=== PATIENT | female | born 1990 | race African-American/Black ===

== ENCOUNTER 2017-03-13 17:55 | Emergency (ER) | payer SELFPAY ==
[2017-03-13 17:59] VITALS: BP 131/78
--- NOTE | 2017-03-13 18:49 | ER Document Report ---
ED GI/ - General Chief Complaint: Urinary Problem Stated Complaint: ABDOMINAL/BACK PAIN,PAINFUL URINATION Time Seen by Provider: 03/13/17 18:30 Notes: 26 yo female c/o dysuria, frequency, small voids x 2 days. denies fever, abdominal pain, vaginal discharge, back pain TRAVEL OUTSIDE OF THE [place] IN LAST 30 DAYS: No - HPI Patient complains to provider of: Dysuria Timing/Duration: Gradual Location: Suprapubic Vaginal bleeding (Compared to normal period): None - Related Data Allergies/Adverse Reactions: Sulfa (Sulfonamide Antibiotics) Allergy (Intermediate, Verified 03/13/17 17:59) RASH Past Medical History - General Information source: Patient - Social History Smoking Status: Never Smoker Frequency of alcohol use: None Drug Abuse: None Lives with: Family Family History: Reviewed & Not Pertinent, CAD, DM - mom is diabetic, Hypertension, Malignancy - breast, Other - lupus - Past Medical History Cardiac Medical History: Reports: Hx Hypertension Pulmonary Medical History: Reports: Hx Asthma Endocrine Medical History: Reports: Hx Diabetes Mellitus Type 1 Renal/ Medical History: Denies: Hx Peritoneal Dialysis Past Surgical History: Reports: Hx Gynecologic Surgery - - Immunizations Hx Diphtheria, Pertussis, Tetanus Vaccination: Yes - 06/20/2009 Hx Pneumococcal Vaccination: 06/20/09 Review of Systems - Review of Systems Constitutional: No symptoms reported EENT: No symptoms reported Cardiovascular: No symptoms reported Respiratory: No symptoms reported Gastrointestinal: No symptoms reported Genitourinary: See HPI Female Genitourinary: No symptoms reported Musculoskeletal: No symptoms reported Skin: No symptoms reported Hematologic/Lymphatic: No symptoms reported Neurological/Psychological: No symptoms reported Physical Exam - Vital signs Vitals: Temp Pulse Resp BP Pulse Ox 98.6 F 77 16 131/78 H 99 03/13/17 17:58 03/13/17 17:58 03/13/17 17:58 03/13/17 17:58 03/13/17 17:58 Interpretation: Normal - General General appearance: Appears well, Alert - HEENT Head: Normocephalic, Atraumatic Eyes: Normal Pupils: PERRL - Respiratory Respiratory status: No respiratory distress Chest status: Nontender Breath sounds: Normal Chest palpation: Normal - Cardiovascular Rhythm: Regular Heart sounds: Normal auscultation Murmur: No - Abdominal Inspection: Normal Distension: No distension Bowel sounds: Normal Tenderness: Nontender Organomegaly: No organomegaly - Back Back: Normal, Nontender - Extremities General upper extremity: Normal inspection, Nontender, Normal color, Normal ROM , Normal temperature General lower extremity: Normal inspection, Nontender, Normal color, Normal ROM , Normal temperature, Normal weight bearing. No: Michael's sign - Neurological Neuro grossly intact: Yes Cognition: Normal Orientation: AAOx4 [place] Coma Scale Eye Opening: Spontaneous [place] Coma Scale Verbal: Oriented [place] Coma Scale Motor: Obeys Commands [place] Coma Scale Total: 15 Speech: Normal Motor strength normal: LUE, RUE, LLE, RLE Sensory: Normal - Psychological Associated symptoms: Normal affect, Normal mood - Skin Skin Temperature: Warm Skin Moisture: Dry Skin Color: Normal Course - Re-evaluation Re-evalutation: 03/13/17 18:45 H&P c/w uncomplicated cystitis. pt is afebrile, nontoxic and stable for discharge - Vital Signs Vital signs: Temp Pulse Resp BP Pulse Ox 98.6 F 77 16 131/78 H 99 03/13/17 17:58 03/13/17 17:58 03/13/17 17:58 03/13/17 17:58 03/13/17 17:58 Discharge - Discharge Clinical Impression: Dysuria Condition: Stable Disposition: HOME, SELF-CARE Instructions: Urinary Tract Infection ([facility]), Antibiotic Therapy ([facility]), Urinary Anesthetic Agent ([facility]) Additional Instructions: please take all medication as prescribed urine culture is pending, we will call you if any change in treatment is indicated push fluids follow up with your primary care if symptoms persist return to ER fo any worsening Prescriptions: Fluconazole [Diflucan] 150 mg PO ONCE PRN #1 tablet PRN Reason: Nitrofurantoin Macrocrystal [Macrodantin] 100 mg PO QID #28 capsule Phenazopyridine HCl [Pyridium 200 mg Tablet] 200 mg PO TID #12 tablet
== END 2017-03-13 18:54 | disposition home or self-care (01) ==
LOC: ER 17:55
DX: R30.0 Dysuria (principal); R35.0 Frequency of micturition; I10 Essential (primary) hypertension; E10.9 Type 1 diabetes mellitus without complications; Z88.2 Allergy status to sulfonamides
CPT/HCPCS: 87086; 87088; 87186; 99283

== ENCOUNTER 2017-05-10 11:37 | Emergency (ER) | payer SELFPAY ==
--- NOTE | 2017-05-10 11:57 | ER Document Report ---
ED Medical Screen (RME) - General Chief Complaint: Pelvic Pain Stated Complaint: PELVIC PAIN Time Seen by Provider: 05/10/17 11:56 Notes: Patient states that she is approximate 11 weeks . States she has been having some pain in the lower part of her abdomen that goes into her inner thighs. She denies any vaginal discharge or bleeding. She states she has not had an ultrasound yet with this . TRAVEL OUTSIDE OF THE [place] IN LAST 30 DAYS: No - Related Data Allergies/Adverse Reactions: Sulfa (Sulfonamide Antibiotics) Allergy (Intermediate, Verified 05/10/17 11:39) RASH Home Medications: Current Home Medications No122/Iron/Folic Acid [ Multi Tablet] 1 tab PO DAILY 05/10/17 [ History] Past Medical History - Social History Chew tobacco use (# tins/day): No Frequency of alcohol use: Rare Drug Abuse: None - Past Medical History Cardiac Medical History: Reports: Hx Hypertension Pulmonary Medical History: Reports: Hx Asthma Endocrine Medical History: Reports: Hx Diabetes Mellitus Type 1 Renal/ Medical History: Denies: Hx Peritoneal Dialysis Past Surgical History: Reports: Hx Gynecologic Surgery - - Immunizations Hx Diphtheria, Pertussis, Tetanus Vaccination: Yes - 06/20/2009 Physical Exam - Vital signs Vitals: Temp Pulse Resp BP Pulse Ox 98.9 F 88 15 113/61 99 05/10/17 11:39 05/10/17 11:39 05/10/17 11:39 05/10/17 11:39 05/10/17 11:39 Course - Vital Signs Vital signs: Temp Pulse Resp BP Pulse Ox 98.9 F 88 15 113/61 99 05/10/17 11:39 05/10/17 11:39 05/10/17 11:39 05/10/17 11:39 05/10/17 11:39
[2017-05-10 12:24] LABS: APPEARANCE,URINE SLIGHTLY-CLOUDY; BILIRUBIN,URINE NEGATIVE (NEGATIVE); GLUCOSE, URINE NEGATIVE (NEGATIVE); KETONES,URINE NEGATIVE (NEGATIVE); LEUKOCYTE ESTERASE,URINE NEGATIVE (NEGATIVE); NITRITE,URINE NEGATIVE (NEGATIVE); PROTEIN,URINE NEGATIVE (NEGATIVE); URINE SPECIFIC GRAVITY 1.028; UROBILINOGEN,URINE NEGATIVE mg/dL (<2.0)
[2017-05-10 12:26] LABS: ABSOLUTE EOSINOPHILS # (AUTO) 0.1 10^3/uL (0.0-0.6); ABSOLUTE LYMPHOCYTES (AUTO) 1.3 10^3/uL (0.5-4.7); ABSOLUTE MONOCYTES (AUTO) 0.5 10^3/uL (0.1-1.4); ABSOLUTE NEUT (AUTO) 3.6 10^3/uL (1.7-8.2); BASOPHILS % (AUTO) 0.9 % (0-2); EOSINOPHILS % (AUTO) 2.1 % (0-6); HEMATOCRIT 35.5 % (36.0-47.0); HEMOGLOBIN 11.8 g/dL (12.0-15.5); HGB HCT DIFFERENCE -0.1; LYMPHOCYTES % (AUTO) 23.5 % (13-45); MEAN CORPUSCULAR HEMOGLOBIN 27.7 pg (27.0-33.4); MEAN CORPUSCULAR HGB CONC 33.4 g/dL (32.0-36.0); MEAN CORPUSCULAR VOLUME 83 fl (80-97); MONOCYTES % (AUTO) 8.9 % (3-13); RED BLOOD COUNT 4.27 10^6/uL (3.72-5.28); RED CELL DISTRIBUTION WIDTH 14.8 % (11.5-14.0); SEGMENTED NEUTROPHILS % (AUTO) 64.6 % (42-78); WHITE BLOOD COUNT 5.6 10^3/uL (4.0-10.5)
[2017-05-10 12:47] LABS: ALANINE AMINOTRANSFERASE 38 U/L (9-52); ALKALINE PHOSPHATASE 42 U/L (38-126); ANION GAP 12 (5-19); ASPARTATE AMINO TRANSFERASE 25 U/L (14-36); BILIRUBIN,DIRECT 0.3 mg/dL (0.0-0.4); BILIRUBIN,TOTAL 0.3 mg/dL (0.2-1.3); BLOOD UREA NITROGEN 11 mg/dL (7-20); CALCIUM 9.5 mg/dL (8.4-10.2); CARBON DIOXIDE 24 mmol/L (22-30); CHLORIDE 105 mmol/L (98-107); CREATININE RESULT 0.81 mg/dL (0.52-1.25); GLUCOSE 83 mg/dL (75-110); SODIUM 141.3 mmol/L (137-145); TOTAL PROTEIN 7.1 g/dL (6.3-8.2)
[2017-05-10] MEDS ORDERED: ACETAMINOPHEN 325 MG TABLET PO ONE (13:01)
--- NOTE | 2017-05-10 13:01 | ER Document Report ---
ED GI/ - General Chief Complaint: Pelvic Pain Stated Complaint: PELVIC PAIN Time Seen by Provider: 05/10/17 11:56 Mode of Arrival: Ambulatory Information source: Patient Notes: Patient is a 27 year old female, approximately 11 weeks presents to the ER today for bilateral lower pelvic pain over the past week. Patient states that she did not know she was until 1 week ago. She has had no care. She admits that she has started vitamins though. She denies any difficulty urinating, burning with urination, abnormal vaginal discharge, vomiting or diarrhea. TRAVEL OUTSIDE OF THE [place] IN LAST 30 DAYS: No - Related Data Allergies/Adverse Reactions: Sulfa (Sulfonamide Antibiotics) Allergy (Intermediate, Verified 05/10/17 11:39) RASH Home Medications: Current Home Medications No122/Iron/Folic Acid [ Multi Tablet] 1 tab PO DAILY 05/10/17 [ History] Past Medical History - General Information source: Patient - Social History Smoking Status: Never Smoker Chew tobacco use (# tins/day): No Frequency of alcohol use: Rare Drug Abuse: None Family History: Reviewed & Not Pertinent, CAD, DM - mom is diabetic, Hypertension, Malignancy - breast, Other - lupus Patient has suicidal ideation: No Patient has homicidal ideation: No - Past Medical History Cardiac Medical History: Reports: Hx Hypertension Pulmonary Medical History: Reports: Hx Asthma Endocrine Medical History: Reports: Hx Diabetes Mellitus Type 1 Renal/ Medical History: Denies: Hx Peritoneal Dialysis Past Surgical History: Reports: Hx Gynecologic Surgery - - Immunizations Hx Diphtheria, Pertussis, Tetanus Vaccination: Yes - 06/20/2009 Hx Pneumococcal Vaccination: 06/20/09 Review of Systems - Review of Systems Constitutional: No symptoms reported EENT: No symptoms reported Cardiovascular: No symptoms reported Respiratory: No symptoms reported Gastrointestinal: No symptoms reported Genitourinary: No symptoms reported Female Genitourinary: See HPI Musculoskeletal: No symptoms reported Skin: No symptoms reported Hematologic/Lymphatic: No symptoms reported Neurological/Psychological: No symptoms reported Physical Exam - Vital signs Vitals: Temp Pulse Resp BP Pulse Ox 98.9 F 88 15 113/61 99 05/10/17 11:39 05/10/17 11:39 05/10/17 11:39 05/10/17 11:39 05/10/17 11:39 - Notes Notes: PHYSICAL EXAMINATION: GENERAL: Well-appearing and in no acute distress. HEAD: Atraumatic, normocephalic. EYES: Pupils equal round and reactive to light, extraocular movements intact, sclera anicteric, conjunctiva are normal. NECK: Normal range of motion, supple without lymphadenopathy LUNGS: CTAB and equal. No wheezes rales or rhonchi. HEART: Regular rate and rhythm without murmurs ABDOMEN: Soft, no tenderness. No guarding, no rebound BACK: no vertebral tenderness, normal ROM GI/: no CVA tenderness EXTREMITIES: Normal range of motion, no pitting edema. No cyanosis. NEUROLOGICAL: Cranial nerves grossly intact. Normal sensory/motor exams. PSYCH: Normal mood, normal affect. SKIN: Warm, Dry, normal turgor, no rashes or lesions noted Course - Re-evaluation Re-evalutation: 05/10/17 18:03 Lab work is unremarkable today, patient has a twin gestation, living intrauterine at approximately 6 weeks and 4 days Without evidence of abnormality. Patient was advised to continue vitamins and follow-up with women's health. I did advise her that she can only take Tylenol for the pain. - Vital Signs Vital signs: Temp Pulse Resp BP Pulse Ox 98.1 F 62 18 130/71 H 100 05/10/17 15:03 05/10/17 15:03 05/10/17 15:03 05/10/17 15:03 05/10/17 15:03 - Laboratory Result Diagrams: 05/10/17 12:09 05/10/17 12:09 Laboratory results interpreted by me: 05/10/17 05/10/17 05/10/17 12:09 12:09 12:09 Hgb 11.8 L Hct 35.5 L RDW 14.8 H Beta HCG, Quant 43990.00 H Urine Ascorbic Acid 40 H Discharge - Discharge Clinical Impression: LLQ pain Twin gestation in first trimester Qualifiers: Multiple gestation type: dichorionic and diamniotic Qualified Code(s): O30.041 - Twin , dichorionic/diamniotic, first trimester Condition: Stable Disposition: HOME, SELF-CARE Instructions: Pelvic Pain in ([facility]) Additional Instructions: Return immediately for any new or worsening symptoms. Follow up with primary care provider, call tomorrow to make followup appointment. Referrals: [facility] [Provider Group] - Follow up as needed
--- NOTE | 2017-05-10 14:37 | RADIOLOGY REPORT (SQ) ---
EXAM DESCRIPTION: U/S OB TRANSVAGINAL W/O DOP COMPLETED DATE/TIME: 05/10/2017 2:10 pm REASON FOR STUDY: pain COMPARISON: None. TECHNIQUE: Endovaginal static and realtime grayscale images acquired of the pelvis. Additional selec jerilyn spectral and color Doppler images recorded. All images stored on PACs. bHCG: Not available LIMITATIONS: None. FINDINGS: FETUS: Living twin intrauterine . 2 distinct gestational sacs are present with s urrounding decidual reaction, dichorionic diamniotic . Age gestational sac contains a yolk sac. Embryo not yet seen. EGA: 6 weeks 2 days, by mean sac diameter measurements KAREL: 01/01/2018 FHR: Yolk sacs are identified. Embryos are not yet seen SUBCHORIONIC BLEED: No SIZE OF BLEED: Not applicable. UTERUS: No masses. No anomalies. Uterus 10 x 6 x 6.5 cm in size CERVICAL LENGTH: 2.1 cm in length Closed. RIGHT ADNEXA: Not visualized due to adnexal bowel gas LEFT ADNEXA: Left ovary 5.2 x 3 x 3.8 cm in size with a 2 x 1.5 cm corpus luteum cyst. No adnexal free fluid. No adnexal masses. FREE FLUID: None. OTHER: No other significant finding. IMPRESSION: Early intrauterine twin , dichorionic diamniotic. Yolk sac is identified in ea ch of the gestational sacs. Embryos not yet seen EGA 6 weeks 2 days by mean sac diameter Trimester of : First - 0 to 13 weeks. TECHNICAL DOCUMENTATION: JOB ID: [id number] [employer]- All Rights Reserved
[2017-05-10 15:06] VITALS: BP 130/71
== END 2017-05-10 15:07 | disposition home or self-care (01) ==
LOC: ER 11:37
DX: O30.041 Twin pregnancy, dichorionic/diamniotic, first trimester (principal); R10.32 Left lower quadrant pain; Z3A.11 11 weeks gestation of pregnancy
CPT/HCPCS: 36415; 76817; 80053; 81001; 84702; 85025; 99284

== ENCOUNTER → 2017-05-18 | Outpatient (CLI) | payer SELFPAY ==
--- NOTE | 2017-05-18 15:05 | RADIOLOGY REPORT (SQ) ---
EXAM DESCRIPTION: U/S OB TRANSVAGINAL W/O DOP; U/S 73796 + EACH ADDIT GEST COMPLETED DATE/TIME: 05/18/2017 2:07 pm REASON FOR STUDY: ENCNTR FOR SUPERVISION OF OTHER NORMAL , FIRST TRI (Z34.81); SIZE AND DEISY ES Z34.81 ENCOUNTER FOR SUPRVSN OF NORMAL , FIRST TRIM COMPARISON: 05/10/2017. TECHNIQUE: Transvaginal static and realtime grayscale images acquired of the pelvis. Additional gail cted spectral and color Doppler images recorded. All images stored on PACs. bHCG: Not applicable. LIMITATIONS: none FINDINGS: Twin Intra-uterine gestation TYPE OF TWIN: Dichorionic Diamniotic. Two gestation sacs. Two yolk sacs. TWIN A: EGA: 6 week 3 day. KAREL: 01/08/2018. FHR: 147 bpm SUBCHORIONIC BLEED: No. SIZE OF BLEED: Not applicable. TWIN B: EGA: 6 week 4 day. KAREL: 01/07/2018. FHR: 116 bpm SUBCHORIONIC BLEED: No. SIZE OF BLEED: Not applicable. UTERUS: No masses. No anomalies. CERVICAL LENGTH: 3.2 cm. Closed. RIGHT ADNEXA: Ovary not identified. No adnexal free fluid. No adnexal masses. LEFT ADNEXA: Simple cyst measuring 3.1 cm. Hemorrhagic cyst measuring 2.3 cm. No adnexal free fluid. No adnexal masses. FREE FLUID: None. OTHER: No other significant finding. IMPRESSION: LIVING TWIN INTRAUTERINE TWIN A EGA: 6 WEEK 3 DAY. TWIN B EGA: 6 WEEK 4 DAY. Trimester of : First - 0 to 13 weeks. TECHNICAL DOCUMENTATION: JOB ID: [id number] [employer]- All Rights Reserved
--- NOTE | 2017-05-18 15:05 | RADIOLOGY REPORT (SQ) ---
EXAM DESCRIPTION: U/S OB TRANSVAGINAL W/O DOP; U/S 39816 + EACH ADDIT GEST COMPLETED DATE/TIME: 05/18/2017 2:07 pm REASON FOR STUDY: ENCNTR FOR SUPERVISION OF OTHER NORMAL , FIRST TRI (Z34.81); SIZE AND DEISY ES Z34.81 ENCOUNTER FOR SUPRVSN OF NORMAL , FIRST TRIM COMPARISON: 05/10/2017. TECHNIQUE: Transvaginal static and realtime grayscale images acquired of the pelvis. Additional gail cted spectral and color Doppler images recorded. All images stored on PACs. bHCG: Not applicable. LIMITATIONS: none FINDINGS: Twin Intra-uterine gestation TYPE OF TWIN: Dichorionic Diamniotic. Two gestation sacs. Two yolk sacs. TWIN A: EGA: 6 week 3 day. KAREL: 01/08/2018. FHR: 147 bpm SUBCHORIONIC BLEED: No. SIZE OF BLEED: Not applicable. TWIN B: EGA: 6 week 4 day. KAREL: 01/07/2018. FHR: 116 bpm SUBCHORIONIC BLEED: No. SIZE OF BLEED: Not applicable. UTERUS: No masses. No anomalies. CERVICAL LENGTH: 3.2 cm. Closed. RIGHT ADNEXA: Ovary not identified. No adnexal free fluid. No adnexal masses. LEFT ADNEXA: Simple cyst measuring 3.1 cm. Hemorrhagic cyst measuring 2.3 cm. No adnexal free fluid. No adnexal masses. FREE FLUID: None. OTHER: No other significant finding. IMPRESSION: LIVING TWIN INTRAUTERINE TWIN A EGA: 6 WEEK 3 DAY. TWIN B EGA: 6 WEEK 4 DAY. Trimester of : First - 0 to 13 weeks. TECHNICAL DOCUMENTATION: JOB ID: [id number] [employer]- All Rights Reserved
== END ==
LOC: RAD 12:35
PROVIDERS: ATTEND Nurse Practitioner Women's Health
DX: Z34.81 Encounter for supervision of other normal pregnancy, first trimester (principal)
CPT/HCPCS: 76802; 76817

== ENCOUNTER 2017-06-06 18:46 | Emergency (ER) | payer MEDICAID ==
[2017-06-06] MEDS ORDERED: NORMAL SALINE 1000 ML 1,000 ML IV ONE (19:10)
--- NOTE | 2017-06-06 19:14 | ER Document Report ---
ED Medical Screen (RME) - General Chief Complaint: Vomiting Stated Complaint: VOMITING Time Seen by Provider: 06/06/17 19:10 Notes: Patient complaint lump" in her left arm. She also states she has been dizzy and lightheaded. She also states she has had intractable vomiting. She states she is currently 9 weeks . TRAVEL OUTSIDE OF THE [place] IN LAST 30 DAYS: No - Related Data Allergies/Adverse Reactions: Sulfa (Sulfonamide Antibiotics) Allergy (Intermediate, Verified 06/06/17 18:48) RASH Past Medical History - Social History Chew tobacco use (# tins/day): No Frequency of alcohol use: None Drug Abuse: None - Past Medical History Cardiac Medical History: Reports: Hx Hypertension Pulmonary Medical History: Reports: Hx Asthma Endocrine Medical History: Reports: Hx Diabetes Mellitus Type 1 Renal/ Medical History: Denies: Hx Peritoneal Dialysis Past Surgical History: Reports: Hx Gynecologic Surgery - - Immunizations Hx Diphtheria, Pertussis, Tetanus Vaccination: Yes - 06/20/2009 Physical Exam - Vital signs Vitals: Temp Pulse Resp BP Pulse Ox 98.9 F 105 H 16 136/76 H 99 06/06/17 18:51 06/06/17 18:51 06/06/17 18:51 06/06/17 18:51 06/06/17 18:51 Course - Vital Signs Vital signs: Temp Pulse Resp BP Pulse Ox 98.9 F 105 H 16 136/76 H 99 06/06/17 18:51 06/06/17 18:51 06/06/17 18:51 06/06/17 18:51 06/06/17 18:51
[2017-06-06 19:58] LABS: ABSOLUTE EOSINOPHILS # (AUTO) 0.1 10^3/uL (0.0-0.6); ABSOLUTE LYMPHOCYTES (AUTO) 1.4 10^3/uL (0.5-4.7); ABSOLUTE MONOCYTES (AUTO) 0.6 10^3/uL (0.1-1.4); ABSOLUTE NEUT (AUTO) 5.6 10^3/uL (1.7-8.2); BASOPHILS % (AUTO) 0.5 % (0-2); EOSINOPHILS % (AUTO) 0.8 % (0-6); HEMATOCRIT 36.5 % (36.0-47.0); HEMOGLOBIN 12.4 g/dL (12.0-15.5); HGB HCT DIFFERENCE 0.7; LYMPHOCYTES % (AUTO) 18.2 % (13-45); MEAN CORPUSCULAR HEMOGLOBIN 28.7 pg (27.0-33.4); MEAN CORPUSCULAR HGB CONC 33.9 g/dL (32.0-36.0); MEAN CORPUSCULAR VOLUME 85 fl (80-97); MONOCYTES % (AUTO) 7.8 % (3-13); RED BLOOD COUNT 4.31 10^6/uL (3.72-5.28); RED CELL DISTRIBUTION WIDTH 14.3 % (11.5-14.0); SEGMENTED NEUTROPHILS % (AUTO) 72.7 % (42-78); WHITE BLOOD COUNT 7.7 10^3/uL (4.0-10.5)
[2017-06-06 20:01] LABS: APPEARANCE,URINE SLIGHTLY-CLOUDY; BILIRUBIN,URINE NEGATIVE (NEGATIVE); GLUCOSE, URINE NEGATIVE (NEGATIVE); KETONES,URINE NEGATIVE (NEGATIVE); LEUKOCYTE ESTERASE,URINE NEGATIVE (NEGATIVE); NITRITE,URINE NEGATIVE (NEGATIVE); PROTEIN,URINE 30 mg/dL (NEGATIVE); URINE SPECIFIC GRAVITY 1.033; UROBILINOGEN,URINE NEGATIVE mg/dL (<2.0)
[2017-06-06] MEDS ORDERED: ONDANSETRON HCL INJ/PF 4 MG/2 ML SDV IV ONE (21:21)
--- NOTE | 2017-06-06 21:27 | ER Document Report ---
ED GI/ - General Chief Complaint: Vomiting Stated Complaint: VOMITING Time Seen by Provider: 06/06/17 19:10 Notes: Patient is a 27-year-old female, at 10 weeks gestation with gestational twins by first trimester ultrasound, the comes emergency department for chief complaint of vomiting and dehydration. She states that she vomits about 5-6 times daily. She states today she is having trouble even drinking water. She denies fever, she denies any specific areas of abdominal pain, she denies vaginal bleeding, she denies flank pain. She denies any daily medications. TRAVEL OUTSIDE OF THE [place] IN LAST 30 DAYS: No - Related Data Allergies/Adverse Reactions: Sulfa (Sulfonamide Antibiotics) Allergy (Intermediate, Verified 06/06/17 18:48) RASH Past Medical History - General Information source: Patient - Social History Smoking Status: Never Smoker Chew tobacco use (# tins/day): No Frequency of alcohol use: None Drug Abuse: None Family History: Reviewed & Not Pertinent, CAD, DM - mom is diabetic, Hypertension, Malignancy - breast, Other - lupus Patient has suicidal ideation: No Patient has homicidal ideation: No - Past Medical History Cardiac Medical History: Reports: Hx Hypertension Pulmonary Medical History: Reports: Hx Asthma Endocrine Medical History: Reports: Hx Diabetes Mellitus Type 1 Renal/ Medical History: Denies: Hx Peritoneal Dialysis Past Surgical History: Reports: Hx Gynecologic Surgery - - Immunizations Hx Diphtheria, Pertussis, Tetanus Vaccination: Yes - 06/20/2009 Hx Pneumococcal Vaccination: 06/20/09 Review of Systems - Review of Systems Constitutional: No symptoms reported EENT: No symptoms reported Cardiovascular: No symptoms reported Respiratory: No symptoms reported Gastrointestinal: See HPI Genitourinary: No symptoms reported Female Genitourinary: See HPI Musculoskeletal: No symptoms reported Skin: No symptoms reported Hematologic/Lymphatic: No symptoms reported Neurological/Psychological: No symptoms reported Physical Exam - Vital signs Vitals: Temp Pulse Resp BP Pulse Ox 98.9 F 105 H 16 136/76 H 99 06/06/17 18:51 06/06/17 18:51 06/06/17 18:51 06/06/17 18:51 06/06/17 18:51 Interpretation: Normal - General General appearance: Appears well, Alert In distress: None - HEENT Head: Normocephalic, Atraumatic Eyes: Normal Conjunctiva: Normal Extraocular movements intact: Yes Eyelashes: Normal Pupils: PERRL Sinus: Normal Nasal: Normal Mouth/Lips: Normal Mucous membranes: Normal Pharynx: Normal Neck: Normal - Respiratory Respiratory status: No respiratory distress Chest status: Nontender Breath sounds: Normal. No: Decreased air movement, Wheezing Chest palpation: Normal - Cardiovascular Rhythm: Regular. No: Tachycardia Heart sounds: Normal auscultation, S1 appreciated, S2 appreciated Murmur: No - Abdominal Inspection: Normal Distension: No distension Bowel sounds: Normal Tenderness: Nontender. No: Tender, Guarding Organomegaly: No organomegaly - Back Back: Normal, Nontender - Extremities General upper extremity: Normal inspection, Nontender, Normal strength, Normal temperature General lower extremity: Normal inspection, Nontender, Normal strength, Normal temperature - Neurological Neuro grossly intact: Yes Cognition: Normal Orientation: AAOx4 [place] Coma Scale Eye Opening: Spontaneous [place] Coma Scale Verbal: Oriented [place] Coma Scale Motor: Obeys Commands [place] Coma Scale Total: 15 Speech: Normal Cranial nerves: Normal Cerebellar coordination: Normal Motor strength normal: LUE, RUE, LLE, RLE Additional motor exam normals: Equal director clinical pharmacology Sensory: Normal - Psychological Associated symptoms: Normal affect, Normal mood - Skin Skin Temperature: Warm Skin Moisture: Dry Skin Color: Normal Course - Re-evaluation Re-evalutation: Patient with mild tachycardia on initial evaluation, on reevaluation after IV fluids this resolved. Soft abdomen, well-appearing patient. CBC unremarkable, chemistry unremarkable, urinalysis shows elevated specific gravity but no ketones or infection. After medications patient tolerating fluids without any difficulty. Patient provided with antinausea medication, recommendations, she states she has a close follow-up with [facility], discussed return precautions, patient states satisfaction and agreement. - Vital Signs Vital signs: Temp Pulse Resp BP Pulse Ox 98.6 F 95 16 130/77 H 98 06/06/17 23:04 06/06/17 23:04 06/06/17 23:04 06/06/17 23:04 06/06/17 23:04 - Laboratory Result Diagrams: 06/06/17 19:45 06/06/17 20:50 Laboratory results interpreted by me: 06/06/17 06/06/17 06/06/17 19:45 19:45 20:50 RDW 14.3 H Total Bilirubin < 0.1 L Urine Protein 30 H Urine Ascorbic Acid 40 H Discharge - Discharge Clinical Impression: Vomiting affecting , Skin abnormality Disposition: HOME, SELF-CARE Additional Instructions: Take Zofran if needed for nausea and vomiting with . Start with bland food, things like Pepcid can help settle your stomach as well. Benadryl can also be helpful for nausea. Continue to rehydrate. Take the Keflex as prescribed for area of infection over the left upper arm. Follow-up with primary care. Return the emergency department for any concerning or worsening symptoms including uncontrolled vomiting, spreading redness on the area of the arm, fever , or any other concerning symptoms. Prescriptions: Cephalexin Monohydrate [Keflex 500 mg Capsule] 500 mg PO QID #28 capsule Promethazine HCl [Phenergan 25 mg Tablet] 1 - 2 tab PO Q6H PRN #20 tablet PRN Reason: Referrals: LEEANN BAY MD [Primary Care Provider] - Follow up as needed
[2017-06-06 21:29] LABS: ALANINE AMINOTRANSFERASE 32 U/L (9-52); ALBUMIN 3.5 g/dL (3.5-5.0); ALKALINE PHOSPHATASE 46 U/L (38-126); ANION GAP 11 (5-19); ASPARTATE AMINO TRANSFERASE 28 U/L (14-36); BLOOD UREA NITROGEN 13 mg/dL (7-20); CALCIUM 9.4 mg/dL (8.4-10.2); CARBON DIOXIDE 23 mmol/L (22-30); CHLORIDE 104 mmol/L (98-107); CREATININE RESULT 0.78 mg/dL (0.52-1.25); GLUCOSE 84 mg/dL (75-110); POTASSIUM 4.1 mmol/L (3.6-5.0); SODIUM 138.4 mmol/L (137-145); TOTAL PROTEIN 6.4 g/dL (6.3-8.2)
[2017-06-06 21:30] LABS: BILIRUBIN,TOTAL < 0.1 mg/dL (0.2-1.3)
[2017-06-06] MEDS ORDERED: ONDANSETRON ODT 4 MG TAB (6 TAB/DSPK) PO PRN (22:44)
[2017-06-06] MEDS ORDERED: FAMOTIDINE 20 MG TABLET PO ONE (22:44)
[2017-06-06 23:06] VITALS: BP 130/77
== END 2017-06-06 23:04 | disposition home or self-care (01) ==
LOC: ER 18:46
DX: O21.9 Vomiting of pregnancy, unspecified (principal); O24.011 Pre-existing type 1 diabetes mellitus, in pregnancy, first trimester; E10.9 Type 1 diabetes mellitus without complications; O26.891 Other specified pregnancy related conditions, first trimester; R00.0 Tachycardia, unspecified; O99.511 Diseases of the respiratory system complicating pregnancy, first trimester; J45.909 Unspecified asthma, uncomplicated; O99.711 Diseases of the skin and subcutaneous tissue complicating pregnancy, first trimester; O16.1 Unspecified maternal hypertension, first trimester; O30.001 Twin pregnancy, unspecified number of placenta and unspecified number of amniotic sacs, first trimester; Z3A.10 10 weeks gestation of pregnancy; Z88.2 Allergy status to sulfonamides
CPT/HCPCS: 99284; 96361; 96374; 36415; 85025; 80053; 81001; J3490; J2405; J7030

== ENCOUNTER → 2017-06-28 | Outpatient (CLI) | payer MEDICAID ==
[2017-06-28 11:14] LABS: ALANINE AMINOTRANSFERASE 48 U/L (9-52); ALBUMIN 3.5 g/dL (3.5-5.0); ALKALINE PHOSPHATASE 36 U/L (38-126); ANION GAP 8 (5-19); ASPARTATE AMINO TRANSFERASE 30 U/L (14-36); BILIRUBIN,DIRECT 0.1 mg/dL (0.0-0.4); BILIRUBIN,TOTAL 0.2 mg/dL (0.2-1.3); BLOOD UREA NITROGEN 10 mg/dL (7-20); CALCIUM 9.7 mg/dL (8.4-10.2); CARBON DIOXIDE 26 mmol/L (22-30); CHLORIDE 103 mmol/L (98-107); GLUCOSE 88 mg/dL (75-110); LDH 335 U/L (313-618); POTASSIUM 4.3 mmol/L (3.6-5.0); SODIUM 137.1 mmol/L (137-145); TOTAL PROTEIN 6.3 g/dL (6.3-8.2); URIC ACID 5.7 mg/dL (2.5-6.2)
== END ==
LOC: OCH 10:38
PROVIDERS: ATTEND Nurse Practitioner Women's Health
DX: O30.041 Twin pregnancy, dichorionic/diamniotic, first trimester (principal)
CPT/HCPCS: 36415; 80053; 83615; 84550

== ENCOUNTER 2017-10-21 11:34 | Outpatient (CLI) | payer MEDICAID ==
[2017-10-21 12:35] LABS: APPEARANCE,URINE CLOUDY; BILIRUBIN,URINE NEGATIVE (NEGATIVE); COLOR,URINE YELLOW; GLUCOSE, URINE NEGATIVE (NEGATIVE); KETONES,URINE NEGATIVE (NEGATIVE); LEUKOCYTE ESTERASE,URINE NEGATIVE (NEGATIVE); NITRITE,URINE POSITIVE (NEGATIVE); PROTEIN,URINE 30 mg/dL (NEGATIVE); URINE SPECIFIC GRAVITY 1.026; UROBILINOGEN,URINE NEGATIVE mg/dL (<2.0)
[2017-10-21 12:49] LABS: URINE AMPHETAMINES SCREEN NEGATIVE; URINE BARBITURATES SCREEN NEGATIVE; URINE BENZODIAZEPINES SCREEN NEGATIVE; URINE COCAINE SCREEN NEGATIVE; URINE MARIJUANA (THC) SCREEN NEGATIVE; URINE METHADONE SCREEN NEGATIVE; URINE PHENCYCLIDINE SCREEN NEGATIVE
--- NOTE | 2017-10-21 13:03 | RADIOLOGY REPORT (SQ) ---
EXAM DESCRIPTION: U/S OB LIMITED COMPLETED DATE/TIME: 10/21/2017 12:44 pm REASON FOR STUDY: cervical length, twins COMPARISON: 05/18/2017 TECHNIQUE: Limited transabdominal grayscale ultrasound for evaluation of specific requested obstetri michael parameters. LIMITATIONS: None. FINDINGS: CERVICAL LENGTH: 3.7 cm. Closed. LVP TWIN A: 8.1 cm. LV P TWIN B: 3.8 cm. FHR: 157 BPM twin a ; 173 bpm twin B PRESENTATION: Breech/breech OTHER: Posterior placentas. IMPRESSION: LIMITED OBSTETRICAL ULTRASOUND WITH MEASURED PARAMETERS DELINEATED ABOVE. Trimester of : Third trimester - 28 weeks to delivery. TECHNICAL DOCUMENTATION: JOB ID: [id number] [employer]- All Rights Reserved Reading location - IP/workstation name: [email or web address]
[2017-10-21 14:17] LABS: CHLAM PCR NOT DETECTED (NOT DETECT); GON PCR NOT DETECTED (NOT DETECT)
== END 2017-10-21 15:04 | disposition home or self-care (01) ==
LOC: LC 11:34
PROVIDERS: ATTEND Student in an Organized Health Care Education/Training Program
PROC: 4A1HXCZ Monitoring of Products of Conception, Cardiac Rate, External Approach (ICD-10-PCS; principal; 2017-10-21)
DX: O26.893 Other specified pregnancy related conditions, third trimester (principal); R10.9 Unspecified abdominal pain; O30.003 Twin pregnancy, unspecified number of placenta and unspecified number of amniotic sacs, third trimester; Z3A.28 28 weeks gestation of pregnancy
CPT/HCPCS: 76815; 80307; 81001; 87086; 87491; 87591

== ENCOUNTER 2017-12-01 11:58 | Outpatient (CLI) | payer MEDICAID | END 2017-12-01 12:35 | disposition home or self-care (01) | LOC: LC 11:58 | PROVIDERS: ATTEND Obstetrics & Gynecology | PROC: 4A1HXCZ Monitoring of Products of Conception, Cardiac Rate, External Approach (ICD-10-PCS; principal; 2017-12-01) | DX: O30.003 Twin pregnancy, unspecified number of placenta and unspecified number of amniotic sacs, third trimester (principal); Z3A.34 34 weeks gestation of pregnancy | CPT/HCPCS: 59025 ==

== ENCOUNTER 2017-12-15 04:46 | Inpatient (IN) | payer MEDICAID ==
--- NOTE | 2017-12-15 04:52 | Non Stress Test Report ---
Non Stress Test Datetime Report Generated by CPN: 12/15/2017 04:51 DEMOGRAPHIC EGA NST: 36.3 EGA NST: 34.4 INDICATION Indication for Study: Other Indication for Study: Ordered by Provider Indication for Study (NST) Other: lc MONITORING Monitor Explained: Monitor Explained; Test Explained; Patient Verbalized Understanding Monitor Explained: Monitor Explained; Test Explained; Patient Verbalized Understanding Time on Monitor: 12/14/2017 16:05 Time on Monitor: 12/01/2017 12:09 Time off Monitor: 12/14/2017 18:36 Time off Monitor: 12/01/2017 12:30 NST Duration: 151 NST Duration: 21 NST INTERVENTIONS NST Interventions: Reposition Patient NST Interventions: PO Hydration; Reposition Patient Physician Notified NST: MD CHASE Physician Notified NST: DONALDO Plaza BABY A: [id number] BABY A Movement : Present Movement : Present Contraction Frequency : 7-8 Contraction Frequency : x2 FHR Baseline : 130 FHR Baseline : 130 Accelerations : 15X15 Accelerations : 15X15 Decelerations : None Decelerations : None Variability : Moderate 6-25bpm Variability : Moderate 6-25bpm NST Review: Meets Criteria for Reactive NST NST Review: Meets Criteria for Reactive NST NST Review and Verified By : SURINDER OSBORN NST Review and Verified By : RODRICK Graham Results: Reactive NST Results: Reactive BABY B Movement: Present Movement: Present FHR Baseline: 140 FHR Baseline: 130 Accelerations: 15X15 Accelerations: 15X15 Decelerations: None Decelerations: None Variability: Moderate 6-25bpm Variability: Moderate 6-25bpm NST Review: Meets Criteria for Reactive NST NST Review: Meets Criteria for Reactive NST NST Reviewed And Verified By: SURINDER OSBORN NST Reviewed And Verified By: RODRICK Graham Results: Reactive NST Results: Reactive NST REPORT Report Trigger: Send Report
[2017-12-15] MEDS ORDERED: RINGERS SOLUTION,LACTATED 1,000 ML IV PRN (05:23)
[2017-12-15] MEDS ORDERED: LIDOCAINE 1% INJ-PF (10 MG/ML) 30 ML SDV ONE (05:30)
[2017-12-15] MEDS ORDERED: PENICILLIN G-K 5 MILLION UNIT VIAL ONE (05:30)
[2017-12-15] MEDS ORDERED: OXYTOCIN/NORMAL SALINE 0 UNIT/0 ML RTUINJ ONE (05:30)
[2017-12-15] MEDS ORDERED: MISOPROSTOL 0.2 MG TABLET ONE (05:30)
[2017-12-15] MEDS ORDERED: PENICILLIN G POTASSIUM 5,000,000 UNIT in DEXTROSE 5%-WATER 100 ML IV ONE (05:32)
[2017-12-15] MEDS ORDERED: AMPICILLIN SOD INJ 2 GM VIAL ONE ×2 (05:43→10:11)
[2017-12-15] MEDS ORDERED: ACETAMINOPHEN 325 MG TABLET ONE (05:47)
[2017-12-15 05:48] LABS: APPEARANCE,URINE TURBID; BILIRUBIN,URINE NEGATIVE (NEGATIVE); COLOR,URINE YELLOW; GLUCOSE, URINE NEGATIVE (NEGATIVE); KETONES,URINE 20 mg/dL (NEGATIVE); LEUKOCYTE ESTERASE,URINE MODERATE (NEGATIVE); NITRITE,URINE NEGATIVE (NEGATIVE); PROTEIN,URINE 100 mg/dL (NEGATIVE); URINE SPECIFIC GRAVITY 1.018; UROBILINOGEN,URINE NEGATIVE mg/dL (<2.0)
[2017-12-15 05:55] LABS: URINE AMPHETAMINES SCREEN NEGATIVE; URINE BARBITURATES SCREEN NEGATIVE; URINE BENZODIAZEPINES SCREEN NEGATIVE; URINE COCAINE SCREEN NEGATIVE; URINE MARIJUANA (THC) SCREEN NEGATIVE; URINE METHADONE SCREEN NEGATIVE; URINE PHENCYCLIDINE SCREEN NEGATIVE
[2017-12-15 05:56] LABS: ABSOLUTE MONOCYTES (AUTO) 0.7 10^3/uL (0.1-1.4); ABSOLUTE NEUT (AUTO) 9.5 10^3/uL (1.7-8.2); BASOPHILS % (AUTO) 0.3 % (0-2); HEMATOCRIT 29.8 % (36.0-47.0); HEMOGLOBIN 9.4 g/dL (12.0-15.5); LYMPHOCYTES % (AUTO) 8.8 % (13-45); MEAN CORPUSCULAR HGB CONC 31.7 g/dL (32.0-36.0); MEAN CORPUSCULAR VOLUME 76 fl (80-97); MONOCYTES % (AUTO) 6.2 % (3-13); PLATELET COUNT 166 10^3/uL (150-450); RED BLOOD COUNT 3.94 10^6/uL (3.72-5.28); RED CELL DISTRIBUTION WIDTH 15.3 % (11.5-14.0); SEGMENTED NEUTROPHILS % (AUTO) 84.7 % (42-78); TOTAL CELLS COUNTED % (AUTO) 100 %; WHITE BLOOD COUNT 11.3 10^3/uL (4.0-10.5)
[2017-12-15] MEDS ORDERED: EPHEDRINE SULFATE INJ 50 MG/1 ML AMPULE ONE (06:03)
[2017-12-15] MEDS ORDERED: BUPIVACAINE HCL 0.25 % INJ/PF (2.5 MG/1 ML) 30 ML VIAL ONE (06:03)
[2017-12-15] MEDS ORDERED: PHENYLEPHRINE HCL INJ/PF 10 MG/1 ML SDV ONE (06:03)
[2017-12-15] MEDS ORDERED: FENTANYL/BUPIVACAINE/NS/PF 300 MCG/150 ML RTUINJ EPI ONE (06:03)
[2017-12-15] MEDS ORDERED: FENTANYL CITRATE INJ/PF 100 MCG/2 ML AMPUL ONE (06:03)
[2017-12-15] MEDS ORDERED: AMPICILLIN SODIUM 2 GM in NORMAL SALINE 100 ML IV ONE (06:07)
[2017-12-15] MEDS ORDERED: LIDOCAINE 1.5%/EPINEPHRINE INJ-PF 30 ML SDV ONE (06:10)
--- NOTE | 2017-12-15 06:16 | Admission Physical ---
Datetime Report Generated by CPN: 12/15/2017 06:16 CURRENT ADMISSION Chief Complaint: Uterine Contractions Indication for Induction: Not Applicable Admit Impression : Term, Intrauterine ; Active Labor Admit Plan: Admit to Unit; Initiate Labor Protocol ALLERGIES Medication Allergies: No Medication Allergies: Sulfa (Sulfonamide Antibiotics)/MO/RASH (12/15/2017) Latex: No Latex Allergies Environmental Allergies: mold OBSTETRICAL HISTORY EDC: 01/08/2018 00:00 : 4 Para: 2 Term: 2 : 0 SAB: 0 IAB: 1 Ectopic: 0 Livin Cesareans: 0 VBACs: 0 Multiple Births: 0 Gestational Diabetes: No Rh Sensitization: No Incompetent Cervix: No DARRELL: No Infertility: No ART Treatment: No Uterine Anomaly: No IUGR: No Hx Previous C/S: No Macrosomia: No Hx Loss/Stillborn: No PIH: No Hx : Yes Placenta Previa/Abruption: No Depression/PP Depression: Yes PTL/PROM: No Post Hemorrhage: No Current Procedures: Ultrasound; NST Obstetrical History Comments: HX OF SIDS OF SECOND CHILD AT 4 MONTHS OF AGE SEE RECORDS Alcohol: No Marijuana : No Cocaine: No Other Illicit Drugs: No Cigarettes: Never Smoker. [id number] MEDICAL HISTORY Diabetes: No Blood Transfusion: No Pulmonary Disease (Asthma, TB): Yes Breast Disease: No Hypertension: No Superintendent Tests Surgery: No Heart Disease: No Hosp/Surgery: Yes Autoimmune Disorder: No Anesthetic Complications: No Kidney Disease: No Abnormal Pap Smear: No Neuro/Epilepsy: No Psychiatric Disorders: No Other Medical Diseases: No Hepatitis/Liver Disease: No Significant Family History: No Varicosities/Phlebitis: No Trauma/Violence : No Thyroid Dysfunction: No Medical History Comments: [place]eth, Childbirth INFECTIOUS HISTORY Gonorrhea: Yes Genital Herpes: No Chlamydia: Yes Tuberculosis: No Syphilis: No Hepatitis: No HIV/AIDS Exposure: No Rash or Viral Illness: No HPV: No Infectious History Comments: + GCCT BEGINNING OF , RODRICK NEGATIVE 06/28/17 PHYSICAL EXAM General: Normal HEENT: Normal Neurologic: Normal Thyroid: Normal Heart: Normal Lungs: Normal Breast: Deferred Back: Normal Abdomen: Normal Genitourinary Exam: Normal Extremities: Normal DTRs: Normal Pelvic Type: Adequate Vital Signs: Reviewed VAGINAL EXAM Dilatation: 6 Effacement: 100 Station: 0 MEMBRANES Pooling: Negative Membranes: Intact FETUS A EGA: 36.4 FHR- Baseline: 160 Variability: Moderate 6-25bpm Accelerations: 10X10 FHR Category: Category I Presentation: Vertex Presentation- Other: trans Admit Comment: Twins A vtx, 6 lbs and B trans and 7 lbs. She desires a vaginal delivery. Will begin GBS prophylaxis FETUS B Monitoring: External US PLANS FOR LABOR AND DELIVERY Labor and Delivery: None Pain Management: Epidural Feeding Preference: Breast Benefit of Breast Feed Discussed: Yes Circumcision: Yes INFORMED CONSENT Signature: with User ID: [email or web address]
[2017-12-15] MEDS ORDERED: OXYTOCIN/NORMAL SALINE 20 UNIT/1,000 ML RTUINJ ONE (08:21)
[2017-12-15] MEDS ORDERED: PENICILLIN G POTASSIUM 2,500,000 UNIT in DEXTROSE 5%-WATER 50 ML IV SCH (09:34)
[2017-12-15] MEDS ORDERED: GLYCERIN/WITCH HAZEL LEAF 1 EACH MED..PAD TP PRN (09:35)
[2017-12-15] MEDS ORDERED: DIPH/PERTUSS(ACELL)/TETANUS VAC/PF 0.5 ML SYR (>=10YO) IM PRN (09:35)
[2017-12-15] MEDS ORDERED: MAGNESIUM HYDROXIDE SUSP 30 ML UDCUP PO PRN (09:35)
[2017-12-15] MEDS ORDERED: MEASLES,MUMPS&RUBELLA VACC/PF 0.5 ML VIAL SUBCUT PRN (09:35)
[2017-12-15] MEDS ORDERED: ACETAMINOPHEN WITH CODEINE #3 TABLET PO PRN (09:35)
[2017-12-15] MEDS ORDERED: PSEUDOEPHEDRINE HCL 30 MG TABLET PO PRN (09:35)
[2017-12-15] MEDS ORDERED: DIBUCAINE 1% OINTMENT 28 GM TP PRN (09:35)
[2017-12-15] MEDS ORDERED: DIPHENHYDRAMINE HCL 25 MG CAPSULE PO PRN (09:35)
[2017-12-15] MEDS ORDERED: PROMETHAZINE HCL INJ 25 MG/1 ML VIAL IV PRN (09:35)
[2017-12-15] MEDS ORDERED: PROMETHAZINE HCL 25 MG TABLET PO PRN (09:35)
[2017-12-15] MEDS ORDERED: ACETAMINOPHEN 650 MG SUPP.RECT PR PRN (09:35)
[2017-12-15] MEDS ORDERED: OXYTOCIN/NORMAL SALINE 20 UNIT/1,000 ML RTUINJ IV PRN (09:35)
[2017-12-15] MEDS ORDERED: NA PHOS,M-B/NA PHOS,DI-BA (ADULT) 133 ML ENEMA PR PRN (09:35)
[2017-12-15] MEDS ORDERED: BENZOCAINE/MENTHOL AEROSOL SPRAY 56 ML TOP PRN (09:35)
[2017-12-15] MEDS ORDERED: ZOLPIDEM TARTRATE 5 MG TABLET PO PRN (09:35)
[2017-12-15] MEDS ORDERED: PROMETHAZINE HCL 25 MG SUPP.RECT PR PRN (09:35)
--- NOTE | 2017-12-15 09:41 | PDOC DELIVERY SUMMARY ---
Delivery Summary - Maternal Risk Factors: Labor <37 wks Risk Factors/Complications Other:: twins Ruptured Membranes: AROM Fluids: Clear - Delivery Presentation: Vertex, Breech Heart Rate Monitoring: Externally Uterine Contraction Monitoring: External Nuchal Cord: Yes
[2017-12-15] MEDS ORDERED: AMPICILLIN SODIUM 1 GM in NORMAL SALINE 50 ML IV SCH (10:07)
[2017-12-15] MEDS ORDERED: IBUPROFEN 800 MG TABLET ONE (10:53)
[2017-12-15] MEDS: PRENATAL VITAMIN W DHA CAPSULE PO SCH (13:21)
[2017-12-15] MEDS: FAMOTIDINE 20 MG TABLET PO SCH ×2 (13:21→22:07)
[2017-12-15] MEDS: DOCUSATE SODIUM 100 MG CAPSULE PO SCH ×2 (13:21→17:45)
[2017-12-15] MEDS: FERROUS SULFATE 325 MG TABLET PO SCH ×2 (13:21→17:45)
[2017-12-15] MEDS: SENNOSIDES/DOCUSATE 8.6-50 MG 1 EACH TABLET PO SCH (13:21)
[2017-12-15] MEDS: IBUPROFEN 800 MG TABLET PO SCH ×2 (13:42→22:07)
[2017-12-15] MEDS ORDERED: AMPICILLIN SOD/SULBACTAM 3 GM VIAL IV SCH (14:15)
[2017-12-15] MEDS ORDERED: AMPICILLIN SODIUM/SULBACTAM NA 3 GM in NORMAL SALINE 100 ML IV ONE (14:30)
[2017-12-15] MEDS: AMPICILLIN SODIUM/SULBACTAM NA 3 GM in NORMAL SALINE 100 ML IV SCH (22:07)
[2017-12-16] MEDS: AMPICILLIN SODIUM/SULBACTAM NA 3 GM in NORMAL SALINE 100 ML IV SCH (05:34)
[2017-12-16] MEDS: IBUPROFEN 800 MG TABLET PO SCH ×3 (05:35→22:02)
[2017-12-16 07:38] LABS: HEMATOCRIT 24.3 % (36.0-47.0); MEAN CORPUSCULAR HEMOGLOBIN 23.9 pg (27.0-33.4); MEAN CORPUSCULAR HGB CONC 31.7 g/dL (32.0-36.0); MEAN CORPUSCULAR VOLUME 76 fl (80-97); PLATELET COUNT 141 10^3/uL (150-450); RED BLOOD COUNT 3.23 10^6/uL (3.72-5.28); RED CELL DISTRIBUTION WIDTH 15.5 % (11.5-14.0); WHITE BLOOD COUNT 17.3 10^3/uL (4.0-10.5)
[2017-12-16 07:41] LABS: HEMOGLOBIN 7.7 g/dL (12.0-15.5)
[2017-12-16] MEDS: PRENATAL VITAMIN W DHA CAPSULE PO SCH (10:02)
[2017-12-16] MEDS: FERROUS SULFATE 325 MG TABLET PO SCH ×2 (10:02→17:40)
[2017-12-16] MEDS: DOCUSATE SODIUM 100 MG CAPSULE PO SCH ×2 (10:02→17:40)
[2017-12-16] MEDS: FAMOTIDINE 20 MG TABLET PO SCH ×2 (10:02→22:02)
[2017-12-16] MEDS: SENNOSIDES/DOCUSATE 8.6-50 MG 1 EACH TABLET PO SCH (10:03)
--- NOTE | 2017-12-16 10:21 | PDOC PROGRESS REPORT ---
Subjective-OB Progress Note for:: 12/16/17 Subjective: reports twins, encouraged to call for help before feeding. reports bleeding slowing, pain controlled with current meds. no needs expressed Physical Exam (OB) Vital Signs: Temp Pulse Resp BP Pulse Ox 98.4 F 95 18 118/60 95 12/16/17 00:06 12/16/17 00:06 12/16/17 00:06 12/16/17 00:06 12/16/17 00:06 Intake & Output 12/15/17 12/16/17 12/17/17 06:59 06:59 06:59 Intake Total 375 Balance 375 Weight 100.2 kg - Abdomen Description: Soft, Round Hernia Present: No Fundal Description: Firm, Midline Fundal Height: u/u - u/2 - Extremities Lower extremities: Michael's sign - neg Calf: Normal, Nontender Objective-Diagnostic Laboratory: 12/16/17 07:07 12/16/17 07:07 WBC 17.3 H RBC 3.23 L Hgb 7.7 L Hct 24.3 L MCV 76 L MCH 23.9 L MCHC 31.7 L RDW 15.5 H Plt Count 141 L Assessment and Plan(PN) - Assessment and Plan (1) Normal vaginal delivery Is this a current diagnosis for this admission?: Yes - Time Spent with Patient Time with patient: Less than 15 minutes Medications reviewed and adjusted accordingly: Yes - Disposition Anticipated Discharge: Home Within: within 24 hours
[2017-12-17] MEDS: IBUPROFEN 800 MG TABLET PO SCH ×2 (05:58→14:17)
[2017-12-17 07:13] LABS: ABSOLUTE EOSINOPHILS # (AUTO) 0.1 10^3/uL (0.0-0.6); ABSOLUTE LYMPHOCYTES (AUTO) 2.3 10^3/uL (0.5-4.7); ABSOLUTE MONOCYTES (AUTO) 0.9 10^3/uL (0.1-1.4); ABSOLUTE NEUT (AUTO) 10.6 10^3/uL (1.7-8.2); BASOPHILS % (AUTO) 0.3 % (0-2); EOSINOPHILS % (AUTO) 1.1 % (0-6); LYMPHOCYTES % (AUTO) 16.8 % (13-45); MEAN CORPUSCULAR HEMOGLOBIN 24.1 pg (27.0-33.4); MEAN CORPUSCULAR HGB CONC 31.9 g/dL (32.0-36.0); MEAN CORPUSCULAR VOLUME 76 fl (80-97); MONOCYTES % (AUTO) 6.4 % (3-13); PLATELET COUNT 190 10^3/uL (150-450); RED BLOOD COUNT 3.18 10^6/uL (3.72-5.28); RED CELL DISTRIBUTION WIDTH 15.7 % (11.5-14.0); SEGMENTED NEUTROPHILS % (AUTO) 75.4 % (42-78); TOTAL CELLS COUNTED % (AUTO) 100 %
[2017-12-17 07:18] LABS: HEMOGLOBIN 7.7 g/dL (12.0-15.5)
[2017-12-17] MEDS ORDERED: DIPHENHYDRAMINE HCL 25 MG CAPSULE PO PRN (08:57)
[2017-12-17] MEDS ORDERED: NORMAL SALINE 250 ML IV PRN ×2 (08:57)
[2017-12-17] MEDS ORDERED: ACETAMINOPHEN 325 MG TABLET PO PRN (08:57)
--- NOTE | 2017-12-17 09:07 | PDOC PROGRESS REPORT ---
Subjective-OB Progress Note for:: 12/17/17 Subjective: reports some dizziness when standing, states she has good support at home, bleeding minimal, pain controlled with current meds. denies SOB/headache/near syncope; discussed option for blood transfusion R/B/A at length and pt consents to blood products. c/w dr henry, will give one unit PRBC prior to discharge. Physical Exam (OB) Vital Signs: Temp Pulse Resp BP Pulse Ox 98.2 F 85 15 119/78 100 12/16/17 20:00 12/16/17 20:00 12/16/17 20:00 12/16/17 20:00 12/16/17 20:00 Intake & Output 12/16/17 12/17/17 12/18/17 06:59 06:59 06:59 Intake Total 375 500 Output Total 300 Balance 375 200 - Abdomen Description: Round Hernia Present: No Fundal Description: Firm, Non-Midline - right shift, states she recently voided Fundal Height: u/u - u/2 - Abdominal Inspection: Normal Distension: No distension Tenderness: Nontender - Extremities Lower extremities: Michael's sign - neg Calf: Normal, Nontender Objective-Diagnostic Laboratory: 12/17/17 06:17 12/15/17 12/17/17 05:45 06:17 WBC 14.0 H RBC 3.18 L Hgb 7.7 L Hct 24.0 L MCV 76 L MCH 24.1 L MCHC 31.9 L RDW 15.7 H Plt Count 190 Seg Neutrophils % 75.4 Lymphocytes % 16.8 Monocytes % 6.4 Eosinophils % 1.1 Basophils % 0.3 Absolute Neutrophils 10.6 H Absolute Lymphocytes 2.3 Absolute Monocytes 0.9 Absolute Eosinophils 0.1 Absolute Basophils 0.0 Blood Type A POSITIVE Antibody Screen NEGATIVE Assessment and Plan(PN) - Assessment and Plan (1) Normal vaginal delivery Is this a current diagnosis for this admission?: Yes - Time Spent with Patient Time with patient: 15-25 minutes Medications reviewed and adjusted accordingly: Yes - Disposition Anticipated Discharge: Home - today after blood transfusion
--- NOTE | 2017-12-17 09:08 | PDOC DISCHARGE SUMMARY ---
Final Diagnosis Discharge Date: 12/17/17 - Final Diagnosis (1) Normal vaginal delivery Is this a current diagnosis for this admission?: Yes (2) Anemia due to blood loss, acute Is this a current diagnosis for this admission?: Yes Discharge Data - Discharge Medication Prescriptions: Ibuprofen [Motrin 800 mg Tablet] 800 mg PO Q8 #60 tablet Home Medications: Albuterol Sulfate [Proair HFA Inhalation Aerosol 8.5 gm MDI] 2 puff PO DAILY PRN 09/16/15 No122/Iron/Folic Acid [ Multi Tablet] 1 tab PO DAILY 05/10/17 Ferrous Sulfate [Feosol 325 mg Tablet] 325 mg PO BID tablet 12/17/17 Ibuprofen [Motrin 800 mg Tablet] 800 mg PO Q8 #60 tablet 12/17/17 Procedures: NST Intrapartum Procedure(s): Spontaneous Vaginal Delivery - twins - Diagnosis Test Laboratory: Temp Pulse Resp BP Pulse Ox 98.2 F 85 15 119/78 100 12/16/17 20:00 12/16/17 20:00 12/16/17 20:00 12/16/17 20:00 12/16/17 20:00 12/15/17 12/15/17 12/16/17 05:00 05:45 07:07 RBC 3.94 3.23 L Hgb 9.4 L 7.7 L Hct 29.8 L 24.3 L Urine Opiates Screen NEGATIVE 12/17/17 06:17 RBC 3.18 L Hgb 7.7 L Hct 24.0 L Urine Opiates Screen - Discharge information/Instructions Discharge Activity: Balance Activity w/Rest, Pelvic Rest Discharge Diet: Regular Disposition: HOME, SELF-CARE Follow up with: [facility] in: 4, Weeks
[2017-12-17] MEDS: DOCUSATE SODIUM 100 MG CAPSULE PO SCH ×2 (10:16→18:32)
[2017-12-17] MEDS: FAMOTIDINE 20 MG TABLET PO SCH (10:16)
[2017-12-17] MEDS: SENNOSIDES/DOCUSATE 8.6-50 MG 1 EACH TABLET PO SCH (10:17)
[2017-12-17] MEDS: FERROUS SULFATE 325 MG TABLET PO SCH ×2 (10:17→18:32)
[2017-12-17] MEDS: PRENATAL VITAMIN W DHA CAPSULE PO SCH (10:17)
[2017-12-17 14:47] VITALS: BP 121/66
[2017-12-17 16:37] LABS: HEMATOCRIT 27.7 % (36.0-47.0); HEMOGLOBIN 9.1 g/dL (12.0-15.5); MEAN CORPUSCULAR HEMOGLOBIN 24.9 pg (27.0-33.4); MEAN CORPUSCULAR HGB CONC 32.8 g/dL (32.0-36.0); MEAN CORPUSCULAR VOLUME 76 fl (80-97); PLATELET COUNT 220 10^3/uL (150-450); RED BLOOD COUNT 3.65 10^6/uL (3.72-5.28); RED CELL DISTRIBUTION WIDTH 15.9 % (11.5-14.0); WHITE BLOOD COUNT 12.7 10^3/uL (4.0-10.5)
== END 2017-12-17 19:15 | disposition home or self-care (01) | DRG 775 ==
LOC: LC 04:46 → LR 05:29 → 2S 11:51
PROVIDERS: ADMIT Obstetrics & Gynecology; ATTEND Obstetrics & Gynecology
PROC: 10E0XZZ Delivery of Products of Conception, External Approach (ICD-10-PCS; principal; 2017-12-15)
PROC: 10907ZC Drainage of Amniotic Fluid, Therapeutic from Products of Conception, Via Natural or Artificial Opening (ICD-10-PCS; 2017-12-15)
PROC: 4A1HXCZ Monitoring of Products of Conception, Cardiac Rate, External Approach (ICD-10-PCS; 2017-12-15)
PROC: 30233N1 Transfusion of Nonautologous Red Blood Cells into Peripheral Vein, Percutaneous Approach (ICD-10-PCS; 2017-12-17)
DX: O99.02 Anemia complicating childbirth (principal); D62 Acute posthemorrhagic anemia; O30.003 Twin pregnancy, unspecified number of placenta and unspecified number of amniotic sacs, third trimester; O32.1XX0 Maternal care for breech presentation, not applicable or unspecified; O99.513 Diseases of the respiratory system complicating pregnancy, third trimester; J45.909 Unspecified asthma, uncomplicated; Z3A.36 36 weeks gestation of pregnancy; Z88.2 Allergy status to sulfonamides; Z37.2 Twins, both liveborn
CPT/HCPCS: 36415; 36430; 80307; 81001; 85025; 85027; 86592; 86850; 86900; 86901; 86920; 88307; J0290; J0295; J2370; J2540; J2590; J3010; J3490; P9016

== ENCOUNTER 2018-02-28 08:34 | Day surgery (SDC) | payer MEDICAID ==
[2018-02-21 12:13] LABS: APPEARANCE,URINE SLIGHTLY-CLOUDY; BILIRUBIN,URINE NEGATIVE (NEGATIVE); COLOR,URINE YELLOW; GLUCOSE, URINE NEGATIVE (NEGATIVE); KETONES,URINE NEGATIVE (NEGATIVE); LEUKOCYTE ESTERASE,URINE NEGATIVE (NEGATIVE); NITRITE,URINE NEGATIVE (NEGATIVE); PROTEIN,URINE NEGATIVE (NEGATIVE); URINE SPECIFIC GRAVITY 1.015; UROBILINOGEN,URINE NEGATIVE mg/dL (<2.0)
[2018-02-21 12:40] LABS: HEMATOCRIT 35.9 % (36.0-47.0); HEMOGLOBIN 11.5 g/dL (12.0-15.5); MEAN CORPUSCULAR HEMOGLOBIN 25.2 pg (27.0-33.4); MEAN CORPUSCULAR HGB CONC 32.2 g/dL (32.0-36.0); MEAN CORPUSCULAR VOLUME 78 fl (80-97); PLATELET COUNT 249 10^3/uL (150-450); RED BLOOD COUNT 4.58 10^6/uL (3.72-5.28); RED CELL DISTRIBUTION WIDTH 21.4 % (11.5-14.0); WHITE BLOOD COUNT 4.7 10^3/uL (4.0-10.5)
[~2018-02-28 08:34] MED LIST: LACTATED RINGERS 1000 ML IV PRN; LIDOCAINE 0.5% INJ-PF (5 MG/ML) 50 ML SDV SUBCUT PRN
[2018-02-28] MEDS ORDERED: BUPIVACAINE HCL 0.5 % INJ/PF 30 ML SDV ONE (09:10)
[2018-02-28] MEDS ORDERED: MEPERIDINE HCL/PF INJ 25 MG/1 ML DISP.SYRIN IV PRN (09:33)
[2018-02-28] MEDS ORDERED: MORPHINE SULFATE 10 MG/ML INJ IV PRN (09:33)
[2018-02-28] MEDS ORDERED: PROMETHAZINE HCL INJ 25 MG/1 ML VIAL IV PRN ×2 (09:33)
[2018-02-28] MEDS ORDERED: OXYCODONE-ACETAMINOPHEN 5-325 MG TABLET PO PRN ×3 (09:33→11:50)
[2018-02-28] MEDS ORDERED: DIPHENHYDRAMINE HCL 50 MG/ML VIAL IV PRN (09:33)
[2018-02-28] MEDS ORDERED: FENTANYL CITRATE INJ/PF 100 MCG/2 ML AMPUL IV PRN ×3 (09:33)
[2018-02-28] MEDS ORDERED: HYDROMORPHONE HCL INJ/PF 2 MG/ML AMPULE ONE (10:01)
[2018-02-28] MEDS ORDERED: ONDANSETRON HCL INJ/PF 4 MG/2 ML SDV ONE (10:02)
[2018-02-28] MEDS ORDERED: MIDAZOLAM 2 MG/2 ML INJ ONE (10:02)
[2018-02-28] MEDS ORDERED: FENTANYL CITRATE INJ/PF 100 MCG/2 ML AMPUL ONE (10:02)
[2018-02-28] MEDS ORDERED: PROPOFOL INJ 200 MG/20 ML VIAL IV ONE (10:03)
[2018-02-28] MEDS ORDERED: KETOROLAC TROMETHAMINE INJ/PF 30 MG/1 ML SDV ONE (11:21)
[2018-02-28] MEDS: FENTANYL CITRATE INJ/PF 100 MCG/2 ML AMPUL ONE ×4 (11:25→11:45)
--- NOTE | 2018-02-28 11:46 | OPERATIVE REPORT E ---
Operative Report NAME: JOSSE VARNER : 1990 AGE: 27Y DATE OF SURGERY: 02/28/2018 ROOM: PREOPERATIVE DIAGNOSIS: Desires sterilization. POSTOPERATIVE DIAGNOSIS: Desires sterilization. PROCEDURE: Bilateral tubal occlusion using Filshie clips. SURGEON: Sina CASTRO M.D. ESTIMATED BLOOD LOSS: Less than 5 mL. TISSUE REMOVED OR ALTERED: Left tissue was removed. ANESTHESIA: General. DESCRIPTION OF PROCEDURE: The patient was placed in the dorsal lithotomy position, prepped and draped in sterile fashion. Speculum was placed and grasped with a single-toothed tenaculum. Hulka tenaculum was placed. Single-toothed tenaculum was removed. Bladder was drained with a catheter. A subumbilical midline incision was made, introduction of laparoscope, and visualization of tubes, uterus, and ovaries. Both tubes appeared to be normal, but appear to liza for some unknown reason. The right fallopian tube was occluded in the mid portion using Filshie clip and it was repeated on the left. Good purchase of tissue was not noted on the left and a second clip was applied distal to the first and then a second on the right. Both clips appeared to be placed properly with good purchase of tissue on both sides and the tubes were then applied to the fimbria prior to and after banding. The laparoscope was removed and the abdomen deflated. The trocar sleeves were removed. Incision closed with 0 Vicryl for the fascia and 4-0 Monocryl for the skin. Hulka tenaculum was removed and hemostasis was noted. The patient tolerated the procedure well and was taken to the recovery room in good condition. DICTATING PHYSICIAN: Sina CASTRO M.D. [id number] PHY#: [id number] ID: [id number] JOB#: [id number] ACCT: [id number] cc:Sina CASTRO M.D. >
[2018-02-28] MEDS ORDERED: IBUPROFEN 800 MG TABLET PO PRN (11:50)
[2018-02-28] MEDS ORDERED: ONDANSETRON 4 MG TAB.RAPDIS PO PRN (11:51)
[2018-02-28] MEDS ORDERED: SCOPOLAMINE HYDROBROMIDE 1.5 MG PATCH.TD72 ONE (12:27)
[2018-02-28] MEDS ORDERED: PROMETHAZINE HCL INJ 25 MG/1 ML VIAL ONE (12:27)
[2018-02-28] MEDS ORDERED: OXYCODONE-ACETAMINOPHEN 5-325 MG TABLET ONE (13:31)
[2018-02-28 17:24] VITALS: BP 154/103
[2018-02-28] MEDS ORDERED: NEOSTIGMINE METHYLSULFATE 10 MG/10 ML VIAL ONE (22:46)
[2018-02-28] MEDS ORDERED: GLYCOPYRROLATE 1 MG/5 ML SYRINGE ONE (22:46)
[2018-02-28] MEDS ORDERED: ROCURONIUM BROMIDE INJ 50 MG/5 ML VIAL IV ONE (22:46)
[2018-02-28] MEDS ORDERED: SUCCINYLCHOLINE CHLORIDE INJ 200 MG/10 ML VIAL ONE (22:46)
== END 2018-02-28 14:20 | disposition home or self-care (01) ==
LOC: OROUT 08:34
PROVIDERS: ATTEND Obstetrics & Gynecology Gynecology
DX: Z30.2 Encounter for sterilization (principal); J45.909 Unspecified asthma, uncomplicated; Z79.82 Long term (current) use of aspirin; Z79.51 Long term (current) use of inhaled steroids; Z88.2 Allergy status to sulfonamides
CPT/HCPCS: 36415; 85027; 81005; 81025; 58671; J2250; J3490 ×4; J3010; J1885; J1170; J2550; J0330; J2405; J2704; 851

== ENCOUNTER 2018-09-03 10:41 | Emergency (ER) | payer SELFPAY ==
[2018-09-03] MEDS ORDERED: ACETAMINOPHEN 325 MG TABLET PO ONE (11:18)
--- NOTE | 2018-09-03 11:26 | ER Document Report ---
ED General - General Chief Complaint: Cough Stated Complaint: SHORTNESS OF BREATH Time Seen by Provider: 09/03/18 11:18 Information source: Patient Notes: 28-year-old female that presents today with the onset 2 days ago of some runny nose, congestion, sore throat, ear pain, cough, and low-grade fevers. She denies any abdominal discomfort low extremity swelling, we have. Children have a similar cough. TRAVEL OUTSIDE OF THE [place] IN LAST 30 DAYS: No - Related Data Allergies/Adverse Reactions: Sulfa (Sulfonamide Antibiotics) Allergy (Intermediate, Verified 09/03/18 10:47) RASH Past Medical History - Social History Smoking Status: Unknown if Ever Smoked Chew tobacco use (# tins/day): No Frequency of alcohol use: None Drug Abuse: None Family History: Reviewed & Not Pertinent, CAD, DM - mom is diabetic, Hypertension, Malignancy - breast, Other - lupus Patient has suicidal ideation: No Patient has homicidal ideation: No - Past Medical History Cardiac Medical History: Reports: Hx Hypertension Denies: Hx Heart Attack Pulmonary Medical History: Reports: Hx Asthma Denies: Hx Bronchitis, Hx COPD, Hx Pneumonia Neurological Medical History: Denies: Hx Cerebrovascular Accident Endocrine Medical History: Reports: Hx Diabetes Mellitus Type 1 Renal/ Medical History: Denies: Hx Peritoneal Dialysis Musculoskeletal Medical History: Denies Hx Arthritis Past Surgical History: Reports: Hx Gynecologic Surgery - - Immunizations Hx Diphtheria, Pertussis, Tetanus Vaccination: Yes - 06/20/2009 Hx Pneumococcal Vaccination: 06/20/09 Review of Systems - Review of Systems Constitutional: denies: Fever EENT: Nose congestion, Nose discharge, Throat pain. denies: Eye discharge Cardiovascular: denies: Palpitations Respiratory: Cough, Short of breath Gastrointestinal: denies: Vomiting Genitourinary: denies: Dysuria Musculoskeletal: denies: Leg swelling Skin: Other - no hives. denies: Rash Neurological/Psychological: Other - no slurred speech -: Yes All other systems reviewed and negative Physical Exam - Vital signs Vitals: Temp Pulse Resp BP Pulse Ox 100.9 F H 102 H 15 145/90 H 98 09/03/18 10:50 09/03/18 10:50 09/03/18 10:50 09/03/18 10:50 09/03/18 10:50 Notes: Reviewed vital signs and nursing note as charted by RN. CONSTITUTIONAL: Alert and oriented and responds appropriately to questions. Well-appearing; well-nourished HEAD: Normocephalic; atraumatic EYES: PERRL; Conjunctivae clear, sclerae non-icteric ENT: Normal nose; bilateral nonpurulent nasal rhinorrhea; moist mucous membranes; pharynx with minimal erythema with no peritonsillar swelling or exudate present NECK: Supple without meningismus; non-tender; no cervical lymphadenopathy, no masses CARD: Regular rate and rhythm; no murmurs; symmetric distal pulses RESP: Normal chest excursion without splinting or tachypnea; breath sounds clear and equal bilaterally; no wheezes, no rhonchi, no rales ABD/GI: Normal bowel sounds; non-distended; soft, non-tender; no palpable organomegaly or masses BACK: The back appears normal and is non-tender to palpation EXT: Normal ROM in all joints; non-tender to palpation; no edema SKIN: No acute lesions noted NEURO: CN 2-12 intact; 5/5 bilateral upper and lower extremity strength with sensation intact to light touch PSYCH: The patient's mood and manner are appropriate. Grooming and personal hygiene are appropriate. Course - Re-evaluation Re-evalutation: 09/03/18 11:26 Given the above history and physical we will order an x-ray of the chest, rapid strep, influenza, and reassess. I do not detect any posterior pharyngeal lesions or peritonsillar swelling. Patient's vital signs are stable. I have provided Tylenol. I do believe acute bacterial meningitis to be extraordinarily unlikely. 09/03/18 12:03 EKG shows a heart rate of 106, sinus tachycardia, normal axis, no ST elevation or depression. 09/03/18 12:41 X-ray as recorded. Strep and flu were negative. Heart rate is currently 95. Satting 99% on room air. Given the above history, physical, constellation of symptomatology, I do believe that this is most likely viral in nature. Patient will be discharged home with strict return precautions and follow-up with the primary care provider. - Vital Signs Vital signs: Temp Pulse Resp BP Pulse Ox 100.9 F H 102 H 15 145/90 H 98 09/03/18 10:50 09/03/18 10:50 09/03/18 10:50 09/03/18 10:50 09/03/18 10:50 Discharge - Discharge Clinical Impression: Nasal congestion, Cough, Sore throat Fever Qualifiers: Fever type: unspecified Qualified Code(s): R50.9 - Fever, unspecified Condition: Good Disposition: HOME, SELF-CARE Additional Instructions: Come back immediately for any worsening cough, difficulty breathing or swallowing, chest pain or leg swelling, or any other acute problems. Please continue to take Motrin 600 mg and/or Tylenol 1000 mg every 6 hours as needed for fever and discomfort. Please follow-up with your primary care physician.
--- NOTE | 2018-09-03 12:10 | RADIOLOGY REPORT (SQ) ---
EXAM DESCRIPTION: CHEST 2 VIEWS COMPLETED DATE/TIME: 09/03/2018 11:42 am REASON FOR STUDY: 41; chest pain COMPARISON: 09/30/2011 EXAM PARAMETERS: NUMBER OF VIEWS: two views TECHNIQUE: Digital Frontal and Lateral radiographic views of the chest acquired. RADIATION DOSE: NA LIMITATIONS: none FINDINGS: LUNGS AND PLEURA: No opacities, masses or pneumothorax. No pleural effusion. MEDIASTINUM AND HILAR STRUCTURES: No masses or contour abnormalities. HEART AND VASCULAR STRUCTURES: Mild cardiomegaly. BONES: No acute findings. HARDWARE: None in the chest. OTHER: No other significant finding. IMPRESSION: Mild cardiomegaly without acute abnormality of the lungs. No focal airspace opacity. TECHNICAL DOCUMENTATION: JOB ID: [id number] [employer]- All Rights Reserved Reading location - IP/workstation name: [email or web address]
[2018-09-03 12:32] LABS: A TYPE INFLUENZA AG NEGATIVE (NEGATIVE); B INFLUENZA AG NEGATIVE (NEGATIVE)
[2018-09-03] MEDS ORDERED: IBUPROFEN 600 MG TABLET PO ONE (12:50)
[2018-09-03] MEDS ORDERED: NORMAL SALINE 1000 ML 1,000 ML IV ONE (12:50)
[2018-09-03 14:18] VITALS: BP 135/83
--- NOTE | 2018-09-03 16:36 | EKG REPORT ---
SEVERITY:- BORDERLINE ECG - SINUS TACHYCARDIA NONSPECIFIC ST-T CHANGES- INFERIOR LEADS : Confirmed by: Antonio Su MD 03-Sep-2018 16:35:47
== END 2018-09-03 14:18 | disposition home or self-care (01) ==
LOC: ER 10:41
DX: R09.81 Nasal congestion (principal); R05 Cough; J02.9 Acute pharyngitis, unspecified; R50.9 Fever, unspecified; R06.02 Shortness of breath; R09.89 Other specified symptoms and signs involving the circulatory and respiratory systems; H92.09 Otalgia, unspecified ear; J45.909 Unspecified asthma, uncomplicated; E10.9 Type 1 diabetes mellitus without complications
CPT/HCPCS: 93005; 99284; 96360; 87070; 87880; 87804; 71046; 93010; J7030

== ENCOUNTER 2018-10-23 14:30 | Emergency (ER) | payer SELFPAY ==
--- NOTE | 2018-10-23 16:39 | ER Document Report ---
ED General - General Chief Complaint: Redness of Eye Stated Complaint: EYE PAIN Time Seen by Provider: 10/23/18 16:24 Mode of Arrival: Ambulatory Information source: Patient TRAVEL OUTSIDE OF THE [place] IN LAST 30 DAYS: No - HPI Patient complains to provider of: Right eye inflammation Onset: Other - 2 days Onset/Duration: Persistent Severity: None Associated symptoms: None Exacerbated by: Denies Relieved by: Denies Similar symptoms previously: No Recently seen / treated by doctor: No Notes: 28-year-old female coming in today to be seen as well as her infant for eye inflammation. Patient complains of itchy watery crusting of the right eye. Does not have any other upper respiratory symptoms. No fevers or chills. - Related Data Allergies/Adverse Reactions: Sulfa (Sulfonamide Antibiotics) Allergy (Intermediate, Verified 10/23/18 14:32) RASH Past Medical History - Social History Smoking Status: Never Smoker Frequency of alcohol use: Social Family History: Reviewed & Not Pertinent, CAD, DM - mom is diabetic, Hypertension, Malignancy - breast, Other - lupus Patient has suicidal ideation: No Patient has homicidal ideation: No - Past Medical History Cardiac Medical History: Reports: Hx Hypertension Denies: Hx Heart Attack Pulmonary Medical History: Reports: Hx Asthma Denies: Hx Bronchitis, Hx COPD, Hx Pneumonia Neurological Medical History: Denies: Hx Cerebrovascular Accident Endocrine Medical History: Reports: Hx Diabetes Mellitus Type 1 Renal/ Medical History: Denies: Hx Peritoneal Dialysis Musculoskeletal Medical History: Denies Hx Arthritis Past Surgical History: Reports: Hx Gynecologic Surgery - - Immunizations Hx Diphtheria, Pertussis, Tetanus Vaccination: Yes - 06/20/2009 Hx Pneumococcal Vaccination: 06/20/09 Review of Systems - Review of Systems Notes: Constitutional: No fevers. No chills. EENT: Crusting to right eye. Positive for redness in the right eye Cardiovascular: No chest pain. No palpitations. Respiratory: No cough. No shortness of breath. No respiratory distress. Gastrointestinal: No abdominal pain. No nausea, vomiting, or diarrhea. Genitourinary: Atraumatic. No lesions. No pain. No discharge. Musculoskeletal: Atraumatic. No swelling. No deformities. Skin: No rash or lesions. Lymphatic: No swollen lymph nodes. Neurologic: No headache. No syncope. Psychiatric: No suicidal or homicidal ideation. Physical Exam - Vital signs Vitals: Temp Pulse Resp BP Pulse Ox 98.7 F 87 16 133/82 H 96 10/23/18 14:39 10/23/18 14:39 10/23/18 14:39 10/23/18 14:39 10/23/18 14:39 - Notes Notes: General: Well-developed, well-nourished. In no acute distress. Non-toxic appearing. Cardiac: Well-perfused. Regular rate and rhythm. No murmurs, rubs, or gallops. Pulmonary: No respiratory distress. No cyanosis. Bilateral lung fiels are clear to auscultation. Abdominal: Non-distended. Non-rigid. Bowels sounds are present in all four quadrants. No guarding or rebound. HEENT: Head is atraumatic. Conjunctive 1+ injected right eye with watering. Slight mattering of the eyelashes. PERRL. EOMI. Orbits atraumatic. No periorbital swelling or erythema. Oropharynx is without erythema, swelling, or exudates. Neck: Supple. No adenopathy. No meningismus. Dermatologic: Warm with good turgor. No rash. Atraumatic. Chest: Atraumatic. No chest wall tenderness to palpation. Musculoskeletal: Moves all extremities well. No range of motion deficits. no muscular or joint tenderness. No paraspinal muscle tenderness. no midline spinal tenderness or step-off. Genitourinary: Examination deferred Neurologic: No gross neurologic deficits. Psychiatric: Normal mood. Course - Vital Signs Vital signs: Temp Pulse Resp BP Pulse Ox 98.7 F 87 16 133/82 H 96 10/23/18 14:39 10/23/18 14:39 10/23/18 14:39 10/23/18 14:39 10/23/18 14:39 Discharge - Discharge Clinical Impression: Conjunctivitis Qualifiers: Conjunctivitis type: unspecified Laterality: right Qualified Code(s): H10.9 - Unspecified conjunctivitis Condition: Good Disposition: HOME, SELF-CARE Instructions: Conjunctivitis ([facility]), Antibiotic Therapy ([facility]), Eyedrop Use ([facility]) Prescriptions: Polymyxin B Sulfate/Tmp [Polytrim Oph Soln 10 ml] 1 drop OU QID 7 Days #1 bottle Referrals: [facility] [Provider Group] - Follow up as needed
[2018-10-23 17:00] VITALS: BP 124/78
== END 2018-10-23 17:00 | disposition home or self-care (01) ==
LOC: ER 14:30
DX: H10.9 Unspecified conjunctivitis (principal); E10.9 Type 1 diabetes mellitus without complications; I10 Essential (primary) hypertension; J45.909 Unspecified asthma, uncomplicated; Z88.2 Allergy status to sulfonamides
CPT/HCPCS: 99282

== ENCOUNTER 2018-12-04 10:21 | Emergency (ER) | payer SELFPAY ==
[2018-12-04] MEDS ORDERED: CEFTRIAXONE INJ 250 MG VIAL IM ONE (10:43)
[2018-12-04] MEDS ORDERED: AZITHROMYCIN 250 MG TABLET PO ONE (10:43)
[2018-12-04] MEDS ORDERED: LIDOCAINE 1% INJ-PF (10 MG/ML) 30 ML SDV IM ONE (10:43)
--- NOTE | 2018-12-04 10:43 | ER Document Report ---
ED Medical Screen (RME) - General Chief Complaint: Pelvic Pain Stated Complaint: PELVIC PAIN Time Seen by Provider: 12/04/18 10:39 TRAVEL OUTSIDE OF THE [place] IN LAST 30 DAYS: No - HPI Notes: 12/04/18 10:41 Patient is a 28-year-old female with a history of asthma and PID who presents complaining of vaginal discharge over the past 2 weeks, but worsening over the past couple days with pelvic pain to the mid and left side associated. Last menstrual period was about 9 to 10 days ago. She is eating and drinking without difficulty. She is urinating normally and having normal bowel movements. Denies CHÁVEZ, fever, neck pain, URI, CP, SOB, dysuria, back pain, or rash. I have treated and performed a rapid initial assessment of this patient. A comprehensive ED assessment and evaluation of the patient, analysis of test results and completion of medical decision making process will be conducted by additional ED providers. PHYSICAL EXAMINATION: GENERAL: Well-appearing, well-nourished and in no acute distress. A&Ox4. Answers questions appropriately. LUNGS: Breath sounds clear to auscultation bilaterally and equal. No wheezes rales or rhonchi. HEART: Regular rate and rhythm without murmurs, rubs, gallops. ABDOMEN: Soft, nondistended abdomen. No guarding, no rebound. Normal bowel sounds present. No CVA tenderness bilaterally. + mild left lower/mid pelvic tenderness (cannot elicit thorough abd exam w/o bed, however). - Related Data Allergies/Adverse Reactions: Sulfa (Sulfonamide Antibiotics) Allergy (Intermediate, Verified 10/23/18 14:32) RASH Past Medical History - Past Medical History Cardiac Medical History: Reports: Hx Hypertension Denies: Hx Heart Attack Pulmonary Medical History: Reports: Hx Asthma Denies: Hx Bronchitis, Hx COPD, Hx Pneumonia Neurological Medical History: Denies: Hx Cerebrovascular Accident Endocrine Medical History: Reports: Hx Diabetes Mellitus Type 1 Renal/ Medical History: Denies: Hx Peritoneal Dialysis Musculoskeltal Medical History: Denies Hx Arthritis Past Surgical History: Reports: Hx Gynecologic Surgery - - Immunizations Hx Diphtheria, Pertussis, Tetanus Vaccination: Yes - 06/20/2009 History of Influenza Vaccine for 03/2017 - 08/2017 Season: Yes Influenza Administration Date for 03/2017 - 08/2017 Season: 03/20/17 Physical Exam - Vital signs Vitals: Temp Pulse Resp BP Pulse Ox 98.1 F 70 14 133/84 H 98 12/04/18 10:31 12/04/18 10:31 12/04/18 10:31 12/04/18 10:31 12/04/18 10:31 Course - Vital Signs Vital signs: Temp Pulse Resp BP Pulse Ox 98.1 F 70 14 133/84 H 98 12/04/18 10:31 12/04/18 10:31 12/04/18 10:31 12/04/18 10:31 12/04/18 10:31
--- NOTE | 2018-12-04 10:51 | ER Document Report ---
ED General - General Chief Complaint: Pelvic Pain Stated Complaint: PELVIC PAIN Time Seen by Provider: 12/04/18 10:39 Primary Care Provider: [facility] [Provider Group] - Follow up in 3-5 days Notes: Patient is a 28-year-old female that presents to the emergency department for chief complaint of pelvic pain. Patient states that she has been having pelvic cramping over the past several days, left is worse than the right, and she is been concerned that may be she has an STD. She states she did have one sexual partner, but is not currently sexually active. She describes a cramping as a sharp pain on both sides, has not taken anything for today to try to help it. She states she is had increased vaginal discharge, denies having any itching. She denies having any dysuria, hematuria, flank pain, fevers, chills, night sweats. Past Medical History: Asthma, history of ovarian cysts Past Surgical History: Denies surgical history Social History: Admits to occasional alcohol use, denies tobacco or illicit drug use. Family History: Reviewed and noncontributory for presenting illness Allergies: Reviewed, see documented allergy list. REVIEW OF SYSTEMS: Other than noted above, the 12 point review of systems was reviewed with the patient and were negative, all pertinent findings are included in the HPI. PHYSICAL EXAMINATION: Vital signs reviewed, nursing noted reviewed. GENERAL: Well-appearing, well-nourished and in no acute distress. HEAD: Atraumatic, normocephalic. EYES: Eyes appear normal, extraocular movements intact, sclera anicteric, conjunctiva are normal. ENT: nares patent, oropharynx clear without exudates. Moist mucous membranes. NECK: Normal range of motion, supple without lymphadenopathy LUNGS: Breath sounds clear to auscultation bilaterally and equal. No wheezes rales or rhonchi. HEART: Regular rate and rhythm without murmurs ABDOMEN: Soft, nontender, normoactive bowel sounds. No rebound, guarding, or rigidity. No masses appreciated. Pelvic Exam: With a information systems security manager present the exam was explained to the patient and patient agreed to proceed with exam. On exam, no external lesions or abnormalities noted. Internal speculum exam demonstrated normal appearing cervix without purulent discharge. Swabs obtained. Bimanual exam was negative for adnexal tenderness, or palpable masses. EXTREMITIES: Nontender, good range of motion, no pitting or edema. NEUROLOGICAL: No focal neurological deficits. Moves all extremities spontaneously Motor and sensory grossly intact on exam. PSYCH: Normal mood, normal affect. SKIN: Warm, Dry, normal turgor, no rashes or lesions noted on exposed skin TRAVEL OUTSIDE OF THE [place] IN LAST 30 DAYS: No - Related Data Allergies/Adverse Reactions: Sulfa (Sulfonamide Antibiotics) Allergy (Intermediate, Verified 10/23/18 14:32) RASH Past Medical History - Social History Smoking Status: Never Smoker Frequency of alcohol use: Occasional Drug Abuse: None Family History: Reviewed & Not Pertinent, CAD, DM - mom is diabetic, Hypertension, Malignancy - breast, Other - lupus Patient has suicidal ideation: No Patient has homicidal ideation: No - Past Medical History Cardiac Medical History: Reports: Hx Hypertension Denies: Hx Heart Attack Pulmonary Medical History: Reports: Hx Asthma Denies: Hx Bronchitis, Hx COPD, Hx Pneumonia Neurological Medical History: Denies: Hx Cerebrovascular Accident Endocrine Medical History: Reports: Hx Diabetes Mellitus Type 1Comment Only: Hx Diabetes Mellitus Type 2 - gestational Renal/ Medical History: Denies: Hx Peritoneal Dialysis Musculoskeletal Medical History: Denies Hx Arthritis Past Surgical History: Reports: Hx Gynecologic Surgery - - Immunizations Hx Diphtheria, Pertussis, Tetanus Vaccination: Yes - 06/20/2009 Hx Pneumococcal Vaccination: 06/20/09 Physical Exam - Vital signs Vitals: Temp Pulse Resp BP Pulse Ox 98.1 F 70 14 133/84 H 98 12/04/18 10:31 12/04/18 10:31 12/04/18 10:31 12/04/18 10:31 12/04/18 10:31 Course - Re-evaluation Re-evalutation: Patient seen and examined vital signs reviewed. Laboratory data and/or imaging were ordered as appropriate for the patient's pr esenting symptoms and complaint, with consideration of any critical or life threatening conditions that may be associated with their obtained history and exam as noted above. Patient was treated with Rocephin, azithromycin prophylactically, as the patient had concern about possible STI, her clinical exam, did not demonstrate signs of cervicitis. Wet mount was unremarkable, GC chlamydia pending, patient's clinical history is not concerning for ovarian torsion as she is having pain on both sides, cramping in nature, and comes and goes, and patient appears quite comfortable on current exam. The patient was re-evaluated and was stable Evaluation was most consistent with pelvic pain, possible STI exposure, will prescribe Diflucan 150 mg 1 tablet, if needed for yeast infection. Results were discussed with the patient at this point, after careful consideration I feel that that patient can be discharged from the emergency department, the patient was educated treatments and reasons to return to the emergency department based on their presumed diagnosis as noted above, they were advised to followup with a primary care physician in 2-3 days. Patient was agreeable to plan of care. *Note is created using voice recognition software and may contain spelling, syntax or grammatical errors. Laboratory 12/04/18 12/04/18 11:05 11:26 Urine Color YELLOW Urine Appearance SLIGHTLY-CLOUDY Urine pH 6.0 Ur Specific [place] 1.028 Urine Protein NEGATIVE Urine Glucose (UA) NEGATIVE Urine Ketones NEGATIVE Urine Blood NEGATIVE Urine Nitrite NEGATIVE Urine Bilirubin NEGATIVE Urine Urobilinogen NEGATIVE Ur Leukocyte Esterase NEGATIVE Urine WBC (Auto) 1 Urine RBC (Auto) 1 Squamous Epi Cells Auto 8 Urine Mucus (Auto) MOD Urine Ascorbic Acid NEGATIVE Urine HCG, Qual NEGATIVE Trichomonas (Wet Prep) NO TRICHOMONAS SEEN Vaginal WBC RARE WBCS SEEN Vaginal RBC NO RBCS SEEN Vaginal Yeast NO YEAST SEEN - Vital Signs Vital signs: Temp Pulse Resp BP Pulse Ox 98.1 F 70 14 133/84 H 98 12/04/18 10:31 12/04/18 10:31 12/04/18 10:31 12/04/18 10:31 12/04/18 10:31 Discharge - Discharge Clinical Impression: Pelvic pain Condition: Stable Disposition: HOME, SELF-CARE Instructions: Pelvic Pain ([facility]) Prescriptions: Fluconazole [Diflucan] 150 mg PO ONCE PRN #1 tablet PRN Reason: yeast infection Referrals: [facility] [Provider Group] - Follow up in 3-5 days
[2018-12-04 11:44] LABS: RBCS (WET MOUNT) NO RBCS SEEN; T.VAGINALIS (WET MOUNT) NO TRICHOMONAS SEEN; WBCS (WET MOUNT) RARE WBCS SEEN; YEAST (WET MOUNT) NO YEAST SEEN
[2018-12-04 11:47] LABS: APPEARANCE,URINE SLIGHTLY-CLOUDY; BILIRUBIN,URINE NEGATIVE (NEGATIVE); COLOR,URINE YELLOW; GLUCOSE, URINE NEGATIVE (NEGATIVE); KETONES,URINE NEGATIVE (NEGATIVE); LEUKOCYTE ESTERASE,URINE NEGATIVE (NEGATIVE); NITRITE,URINE NEGATIVE (NEGATIVE); PROTEIN,URINE NEGATIVE (NEGATIVE); URINE SPECIFIC GRAVITY 1.028; UROBILINOGEN,URINE NEGATIVE mg/dL (<2.0)
[2018-12-04 12:53] VITALS: BP 142/93
[2018-12-04 13:10] LABS: CHLAM PCR NOT DETECTED (NOT DETECT)
== END 2018-12-04 12:53 | disposition home or self-care (01) ==
LOC: ER 10:21
DX: R10.2 Pelvic and perineal pain (principal); Z20.2 Contact with and (suspected) exposure to infections with a predominantly sexual mode of transmission; J45.909 Unspecified asthma, uncomplicated; I10 Essential (primary) hypertension; Z87.42 Personal history of other diseases of the female genital tract; Z88.2 Allergy status to sulfonamides
CPT/HCPCS: 99284; 96372; 87210; 81025; 81001; 87491; 87591; J3490; J0696

== ENCOUNTER 2019-03-10 16:36 | Emergency (ER) | payer SELFPAY ==
--- NOTE | 2019-03-10 19:40 | ER Document Report ---
ED GI/ - General Chief Complaint: Vaginal Pain Stated Complaint: PELVIC PAIN Time Seen by Provider: 03/10/19 17:08 Primary Care Provider: [facility] [Provider Group] - Follow up in 1 week TRAVEL OUTSIDE OF THE [place] IN LAST 30 DAYS: No - HPI Notes: 03/10/19 20:21 28-year-old female to the emergency department with complaints of sores in her vaginal area for the past several days. She states that it hurts when she urinates and when she wipes. She states that she has been having unprotected sex with a partner who she states she recently got back together with. She states that she also feels like she has some sores coming up around her face. She states that she is never had cold sores or herpes before. She states that there is no chance of as she has had her tubes tied. She denies any other complaints today. - Related Data Allergies/Adverse Reactions: Sulfa (Sulfonamide Antibiotics) Allergy (Intermediate, Verified 10/23/18 14:32) RASH Past Medical History - General Information source: Patient Last Menstrual Period: feb 23 - Social History Smoking Status: Never Smoker Chew tobacco use (# tins/day): No Drug Abuse: None Family History: Reviewed & Not Pertinent, CAD, DM - mom is diabetic, Hypertension, Malignancy - breast, Other - lupus Patient has suicidal ideation: No Patient has homicidal ideation: No - Past Medical History Cardiac Medical History: Reports: Hx Hypertension Denies: Hx Heart Attack Pulmonary Medical History: Reports: Hx Asthma Denies: Hx Bronchitis, Hx COPD, Hx Pneumonia Neurological Medical History: Denies: Hx Cerebrovascular Accident Endocrine Medical History: Reports: Hx Diabetes Mellitus Type 1Comment Only: Hx Diabetes Mellitus Type 2 - gestational Renal/ Medical History: Denies: Hx Peritoneal Dialysis Musculoskeletal Medical History: Denies Hx Arthritis Past Surgical History: Reports: Hx Gynecologic Surgery - - Immunizations Hx Diphtheria, Pertussis, Tetanus Vaccination: Yes - 06/20/2009 Hx Pneumococcal Vaccination: 06/20/09 Review of Systems - Review of Systems Constitutional: denies: Chills, Fever EENT: No symptoms reported Cardiovascular: denies: Chest pain, Palpitations, Heart racing, Orthopnea, Dyspnea, Syncope, Dizziness, Lightheaded Respiratory: denies: Cough, Short of breath Gastrointestinal: denies: Abdominal pain, Diarrhea, Nausea, Vomiting Female Genitourinary: See HPI, Other Musculoskeletal: No symptoms reported Neurological/Psychological: No symptoms reported -: Yes All other systems reviewed and negative Physical Exam - Vital signs Vitals: Temp Pulse Resp BP Pulse Ox 98.3 F 92 18 137/76 H 97 03/10/19 16:58 03/10/19 16:58 03/10/19 16:58 03/10/19 16:58 03/10/19 16:58 Interpretation: Normal - General General appearance: Appears well, Alert - HEENT Head: Normocephalic, Atraumatic Eyes: Normal Pupils: PERRL - Respiratory Respiratory status: No respiratory distress Chest status: Nontender Breath sounds: Normal Chest palpation: Normal - Cardiovascular Rhythm: Regular Heart sounds: Normal auscultation Murmur: No - Abdominal Inspection: Normal Distension: No distension Bowel sounds: Normal Tenderness: Nontender Organomegaly: No organomegaly - Genitourinary External exam: Lesions - There are shallow based ulcerations that are very tender to palpation to the opening of the vagina. There is no superimposed in fection and no edema or streaking erythema. These ulcerations are most consistent with herpetic infection. Patient cannot tolerate speculum exam so swabs were performed without speculum. Chaperoned by RODRICK Osman - Back Back: Normal, Nontender - Extremities General lower extremity: No: Michael's sign - Psychological Associated symptoms: Normal affect, Normal mood - Skin Skin Temperature: Warm Skin Moisture: Dry Skin Color: Normal Course - Re-evaluation Re-evalutation: 03/10/19 Impression: Vaginal ulcerations most concerning for herpetic infection. Will go ahead and start on antivirals. Patient has low suspicion for gonorrhea or chlamydia so we will await those results. Will discharge home. Urinalysis is reassuring. - Vital Signs Vital signs: Temp Pulse Resp BP Pulse Ox 98.3 F 92 18 137/76 H 97 03/10/19 16:58 03/10/19 16:58 03/10/19 16:58 03/10/19 16:58 03/10/19 16:58 - Laboratory Laboratory results interpreted by me: 03/10/19 19:38 Urine Ascorbic Acid 20 H Discharge - Discharge Clinical Impression: Vaginal ulcer, Herpes Condition: Stable Disposition: HOME, SELF-CARE Instructions: Genital Herpes ([facility]) Additional Instructions: TAKE MEDICINES PRESCRIBED. RETURN IF WORSE. PUSH FLUIDS. TAKE ALL ANTIVIRALS. NO SEX UNTIL OUTBREAK HAS RESOLVED. Prescriptions: Dibucaine 1% Ointment [Nupercainal 1% Oint 56 gm] 28 applic TP DAILY #1 tube Valacyclovir HCl [Valtrex] 1,000 mg PO TID #21 tablet Referrals: [facility] [Provider Group] - Follow up in 1 week
[2019-03-10 19:54] LABS: BACTERIA (WET MOUNT) 3+ BACTERIA SEEN; EPITHELIALS (WET MOUNT) 3+ EPITHELIALS SEEN; T.VAGINALIS (WET MOUNT) NO TRICHOMONAS SEEN; WBCS (WET MOUNT) 1+ WBCS SEEN; YEAST (WET MOUNT) NO YEAST SEEN
[2019-03-10 20:10] LABS: APPEARANCE,URINE SLIGHTLY-CLOUDY; BILIRUBIN,URINE NEGATIVE (NEGATIVE); COLOR,URINE YELLOW; GLUCOSE, URINE NEGATIVE (NEGATIVE); KETONES,URINE NEGATIVE (NEGATIVE); LEUKOCYTE ESTERASE,URINE NEGATIVE (NEGATIVE); NITRITE,URINE NEGATIVE (NEGATIVE); PROTEIN,URINE NEGATIVE (NEGATIVE); URINE SPECIFIC GRAVITY 1.028; UROBILINOGEN,URINE NEGATIVE mg/dL (<2.0)
[2019-03-10 20:51] VITALS: BP 138/96
[2019-03-10 21:20] LABS: CHLAM PCR NOT DETECTED (NOT DETECT)
== END 2019-03-10 20:46 | disposition home or self-care (01) ==
LOC: ER 16:36
DX: N76.5 Ulceration of vagina (principal); B00.9 Herpesviral infection, unspecified; I10 Essential (primary) hypertension; J45.909 Unspecified asthma, uncomplicated; Z98.51 Tubal ligation status; Z88.2 Allergy status to sulfonamides
CPT/HCPCS: 81001; 87210; 87250; 87491; 87591

== ENCOUNTER 2019-08-10 14:52 | Emergency (ER) | payer SELFPAY ==
[2019-08-10 14:59] VITALS: BP 134/99
--- NOTE | 2019-08-10 15:01 | ER Document Report ---
ED Medical Screen (RME) - General Chief Complaint: Chest Pain Stated Complaint: DIZZY,CHEST PAIN Time Seen by Provider: 08/10/19 14:56 TRAVEL OUTSIDE OF THE [place] IN LAST 30 DAYS: No - HPI Notes: 08/10/19 15:00 Patient is a 29-year-old female with a history of anxiety and asthma who presents complaining of left-sided chest pain that is been ongoing for the past 1 to 2 weeks and feeling generalized weakness. Patient states that she did have a panic attack on Tuesday which made her symptoms worse. Pain is described as sharp. Pain does not radiate. She is able to eat and drink without difficulty. She is urinating normally. + occ smoker. Denies any prolonged immobilization, distance travel, recent surgery/trauma, personal cancer history, hormone use, or previous DVT/PE. Denies CHÁVEZ, fever, neck pain, URI, n/v/d, Abd pain, dysuria, back pain, or rash. I have treated and performed a rapid initial assessment of this patient. A comprehensive ED assessment and evaluation of the patient, analysis of test results and completion of medical decision making process will be conducted by additional ED providers. PHYSICAL EXAMINATION: GENERAL: Well-appearing, well-nourished and in no acute distress. A&Ox4. Answers questions appropriately. LUNGS: Breath sounds clear to auscultation bilaterally and equal. No wheezes rales or rhonchi. HEART: Regular rate and rhythm without murmurs, rubs, gallops. Extremities: No cyanosis, clubbing, or edema b/l. Michael negative bilaterally. No lower extremity asymmetry. NEUROLOGICAL: Normal speech, normal gait. PSYCH: Normal mood, normal affect. - Related Data Allergies/Adverse Reactions: Sulfa (Sulfonamide Antibiotics) Allergy (Intermediate, Verified 10/23/18 14:32) RASH Past Medical History - Past Medical History Cardiac Medical History: Reports: Hx Hypertension Denies: Hx Heart Attack Pulmonary Medical History: Reports: Hx Asthma Denies: Hx Bronchitis, Hx COPD, Hx Pneumonia Neurological Medical History: Denies: Hx Cerebrovascular Accident Endocrine Medical History: Reports: Hx Diabetes Mellitus Type 1Comment Only: Hx Diabetes Mellitus Type 2 - gestational Renal/ Medical History: Denies: Hx Peritoneal Dialysis Musculoskeltal Medical History: Denies Hx Arthritis Past Surgical History: Reports: Hx Gynecologic Surgery - - Immunizations Hx Diphtheria, Pertussis, Tetanus Vaccination: Yes - 06/20/2009 Physical Exam - Vital signs Vitals: Temp Pulse Resp BP Pulse Ox 98.8 F 91 18 134/99 H 100 08/10/19 14:58 08/10/19 14:58 08/10/19 14:58 08/10/19 14:58 08/10/19 14:58 Course - Vital Signs Vital signs: Temp Pulse Resp BP Pulse Ox 98.8 F 91 18 134/99 H 100 08/10/19 14:58 08/10/19 14:58 08/10/19 14:58 08/10/19 14:58 08/10/19 14:58
--- NOTE | 2019-08-10 15:16 | ER Document Report ---
ED General - General Chief Complaint: Chest Pain Stated Complaint: DIZZY,CHEST PAIN Time Seen by Provider: 08/10/19 14:56 Primary Care Provider: [facility] [Outside] - Follow up as needed Notes: 29-year-old female with history anxiety presents with intermittent chest pressure palpitations, last night she got anxious in a situational fashion got more anxious and began having chest pressure. She used her inhaler for asthma but that did not help and her left hand began cramping. She denies hyperventilating. This is happened before. No radiation to back no ripping or tearing pain no current cardiac history, no cough. She been having intermittent anxiety and depression for a while now mostly situational is from her TRAVEL OUTSIDE OF THE [place] IN LAST 30 DAYS: No - Related Data Allergies/Adverse Reactions: Sulfa (Sulfonamide Antibiotics) Allergy (Intermediate, Verified 10/23/18 14:32) RASH Past Medical History - Social History Smoking Status: Current Every Day Smoker Chew tobacco use (# tins/day): No Frequency of alcohol use: Occasional Drug Abuse: Marijuana Family History: Reviewed & Not Pertinent, CAD, DM - mom is diabetic, Hypertension, Malignancy - breast, Other - lupus Patient has suicidal ideation: Yes Patient has homicidal ideation: No - Past Medical History Cardiac Medical History: Reports: Hx Hypertension Denies: Hx Heart Attack Pulmonary Medical History: Reports: Hx Asthma Denies: Hx Bronchitis, Hx COPD, Hx Pneumonia Neurological Medical History: Denies: Hx Cerebrovascular Accident Endocrine Medical History: Reports: Hx Diabetes Mellitus Type 1Comment Only: Hx Diabetes Mellitus Type 2 - gestational Renal/ Medical History: Denies: Hx Peritoneal Dialysis Musculoskeletal Medical History: Denies Hx Arthritis Past Surgical History: Reports: Hx Gynecologic Surgery - - Immunizations Hx Diphtheria, Pertussis, Tetanus Vaccination: Yes - 06/20/2009 Hx Pneumococcal Vaccination: 06/20/09 Review of Systems - Review of Systems Notes: REVIEW OF SYSTEMS GEN: Denies fever, chills, weight loss ENT: Denies sore throat, nasal discharge, ear pain EYES: Denies blurry vision, eye pain, discharge CV: Denies chest pain, palpitations, edema RESP: Denies cough, shortness of breath, wheezing GI: Denies abdominal pain, nausea, vomiting, diarrhea MSK: Denies joint pain/swelling, edema, SKIN: Denies rash, skin lesions LYMPH: Denies swollen glands/lymph nodes NEURO: Denies headache, focal weakness or numbness, dizziness PSYCH: Current suicidal ideation. Positive anxiety depression. PHYSICAL EXAMINATION General: No acute distress, well-nourished Head: Atraumatic, normocephalic ENT: Mouth normal, oropharynx moist, no exudates or tonsillar enlargement Eyes: Conjunctiva normal, pupils equal, lids normal Neck: No JVD, supple, no guarding CVS: Normal rate, regular rhythm, no murmurs Resp: No resp distress, equal and normal breath sounds bilaterally GI: Nondistended, soft, no tenderness to palpation, no rebound or guarding Ext: No deformities, no edema, normal range of motion in upper and lower ext Back: No CVA or midline TTP Skin: No rash, warm Lymphatic: No lymphadeopathy noted Neuro: Awake, alert. Face symmetric. GCS 15. Physical Exam - Vital signs Vitals: Temp Pulse Resp BP Pulse Ox 98.8 F 91 18 134/99 H 100 08/10/19 14:58 08/10/19 14:58 08/10/19 14:58 08/10/19 14:58 08/10/19 14:58 Course - Re-evaluation Re-evalutation: 08/10/19 16:02 Chest pain with hand cramping most suggestive of hyper elation anxiety with history of same No psychiatric emergencies Physical exam normal doubt ACS collapsed lung dissection PE or pneumonia Work-up consisting of labs EKG and x-ray are negative. Mild leukopenia probably chronic not pertinent to current presentation. Presented with multiple resources for outpatient care and follow-up. I have discussed with the patient there likely diagnosis, aftercare plan, follow-up plans and my usual and customary return precautions. They verbalized understanding of this. 08/10/19 16:02 Apparently eloped prior to evaluation. Had a psych consult ordered by midlevel but the patient got me criteria for inpatient/emergent psych/IVC. - Vital Signs Vital signs: Temp Pulse Resp BP Pulse Ox 98.8 F 91 18 134/99 H 100 08/10/19 14:58 08/10/19 14:58 08/10/19 14:58 08/10/19 14:58 08/10/19 14:58 - Laboratory Result Diagrams: 08/10/19 15:27 02/21/20 15:27 Laboratory results interpreted by me: 08/10/19 08/10/19 08/10/19 15:27 15:27 15:27 WBC 3.9 L Hgb 11.7 L Hct 35.0 L RDW 15.1 H Urine Protein 30 H Urine Blood LARGE H Urine Ascorbic Acid 20 H Salicylates < 1.0 L Acetaminophen < 10 L - Diagnostic Test Radiology reviewed: Image reviewed, Reports reviewed - EKG Interpretation by Me EKG shows normal: Sinus rhythm Rate: Normal Rhythm: NSR When compared to previous EKG there are: Previous EKG unavailable - No ST-T wave changes no signs of PE or AMI Discharge - Discharge Clinical Impression: Panic attack Condition: Good Disposition: ELOPED Instructions: Chest Pain of Unclear Cause ([facility]), Depression ([facility]) Referrals: [facility] [Outside] - Follow up as needed
--- NOTE | 2019-08-10 15:19 | RADIOLOGY REPORT (SQ) ---
EXAM DESCRIPTION: CHEST 2 VIEWS COMPLETED DATE/TIME: 08/10/2019 3:10 pm REASON FOR STUDY: CP COMPARISON: 09/03/2018 EXAM PARAMETERS: NUMBER OF VIEWS: two views TECHNIQUE: Digital Frontal and Lateral radiographic views of the chest acquired. RADIATION DOSE: NA LIMITATIONS: none FINDINGS: LUNGS AND PLEURA: No opacities, masses or pneumothorax. No pleural effusion. MEDIASTINUM AND HILAR STRUCTURES: No masses or contour abnormalities. HEART AND VASCULAR STRUCTURES: Borderline cardiomegaly. No evidence for failure. BONES: No acute findings. HARDWARE: None in the chest. OTHER: No other significant finding. IMPRESSION: 1. NO ACUTE RADIOGRAPHIC FINDING IN THE CHEST. 2. Borderline cardiomegaly. No evidence for failure. TECHNICAL DOCUMENTATION: JOB ID: [id number] 2010 [employer]- All Rights Reserved Reading location - IP/workstation name: [email or web address]
[2019-08-10 15:49] LABS: ABSOLUTE EOSINOPHILS # (AUTO) 0.1 10^3/uL (0.0-0.6); ABSOLUTE LYMPHOCYTES (AUTO) 1.5 10^3/uL (0.5-4.7); ABSOLUTE MONOCYTES (AUTO) 0.3 10^3/uL (0.1-1.4); BASOPHILS % (AUTO) 1.1 % (0-2); EOSINOPHILS % (AUTO) 3.2 % (0-6); HEMOGLOBIN 11.7 g/dL (12.0-15.5); LYMPHOCYTES % (AUTO) 37.6 % (13-45); MEAN CORPUSCULAR HEMOGLOBIN 27.9 pg (27.0-33.4); MEAN CORPUSCULAR HGB CONC 33.5 g/dL (32.0-36.0); MEAN CORPUSCULAR VOLUME 84 fl (80-97); MONOCYTES % (AUTO) 6.6 % (3-13); PLATELET COUNT 224 10^3/uL (150-450); RED CELL DISTRIBUTION WIDTH 15.1 % (11.5-14.0); SEGMENTED NEUTROPHILS % (AUTO) 51.5 % (42-78); TOTAL CELLS COUNTED % (AUTO) 100 %; WHITE BLOOD COUNT 3.9 10^3/uL (4.0-10.5)
[2019-08-10 15:53] LABS: AMORPHOUS SEDIMENT,URINE TRACE /HPF; APPEARANCE,URINE SLIGHTLY-CLOUDY; BILIRUBIN,URINE NEGATIVE (NEGATIVE); COLOR,URINE YELLOW; GLUCOSE, URINE NEGATIVE (NEGATIVE); KETONES,URINE NEGATIVE (NEGATIVE); PROTEIN,URINE 30 mg/dL (NEGATIVE); URINE SPECIFIC GRAVITY 1.026; UROBILINOGEN,URINE NEGATIVE mg/dL (<2.0)
[2019-08-10 15:58] LABS: ACETAMINOPHEN < 10 ug/mL (10-30); ALCOHOL < 10 mg/dL (NONE DETECTED); ALKALINE PHOSPHATASE 50 U/L (38-126); ANION GAP 8 (5-19); ASPARTATE AMINO TRANSFERASE 28 U/L (14-36); BILIRUBIN,DIRECT 0.2 mg/dL (0.0-0.4); BILIRUBIN,TOTAL 0.6 mg/dL (0.2-1.3); BLOOD UREA NITROGEN 13 mg/dL (7-20); CALCIUM 9.5 mg/dL (8.4-10.2); CARBON DIOXIDE 26 mmol/L (22-30); CHLORIDE 106 mmol/L (98-107); GLUCOSE 109 mg/dL (75-110); POTASSIUM 3.8 mmol/L (3.6-5.0); SALICYLATE < 1.0 mg/dL (2.0-20.0); TOTAL PROTEIN 7.3 g/dL (6.3-8.2)
[2019-08-10 16:09] LABS: URINE AMPHETAMINES SCREEN NEGATIVE; URINE BARBITURATES SCREEN NEGATIVE; URINE BENZODIAZEPINES SCREEN NEGATIVE; URINE COCAINE SCREEN NEGATIVE; URINE METHADONE SCREEN NEGATIVE; URINE PHENCYCLIDINE SCREEN NEGATIVE
[2019-08-10 16:18] LABS: URINE MARIJUANA (THC) SCREEN UNCONFIRMED POSITIVE
--- NOTE | 2019-08-10 18:38 | EKG REPORT ---
SEVERITY:- NORMAL ECG - SINUS RHYTHM : Confirmed by: Stalin Burnette 10-Aug-2019 18:37:11
== END 2019-08-10 15:52 | disposition left against medical advice (07) ==
LOC: ER 14:52
DX: F41.0 Panic disorder [episodic paroxysmal anxiety] (principal); F32.9 Major depressive disorder, single episode, unspecified; R45.851 Suicidal ideations; R07.89 Other chest pain; R00.2 Palpitations; R25.2 Cramp and spasm; J45.909 Unspecified asthma, uncomplicated; F17.200 Nicotine dependence, unspecified, uncomplicated; F12.10 Cannabis abuse, uncomplicated; Z79.899 Other long term (current) drug therapy; Z88.2 Allergy status to sulfonamides; Z53.20 Procedure and treatment not carried out because of patient's decision for unspecified reasons
CPT/HCPCS: 36415; 71046; 80053; 80307; 81001; 81025; 84443; 84484; 85025; 93005; 93010; 99281

== ENCOUNTER 2020-02-15 08:51 | Day surgery (SDC) | payer MEDICAID, OTHER ==
[2020-02-12 10:42] LABS: HEMATOCRIT 36.9 % (36.0-47.0); HEMOGLOBIN 12.3 g/dL (12.0-15.5); MEAN CORPUSCULAR HEMOGLOBIN 28.1 pg (27.0-33.4); MEAN CORPUSCULAR HGB CONC 33.2 g/dL (32.0-36.0); MEAN CORPUSCULAR VOLUME 85 fl (80-97); PLATELET COUNT 196 10^3/uL (150-450); RED BLOOD COUNT 4.35 10^6/uL (3.72-5.28); RED CELL DISTRIBUTION WIDTH 14.6 % (11.5-14.0); WHITE BLOOD COUNT 4.5 10^3/uL (4.0-10.5)
[2020-02-12 11:02] LABS: APPEARANCE,URINE SLIGHTLY-CLOUDY; BILIRUBIN,URINE NEGATIVE (NEGATIVE); COLOR,URINE YELLOW; GLUCOSE, URINE NEGATIVE (NEGATIVE); KETONES,URINE NEGATIVE (NEGATIVE); LEUKOCYTE ESTERASE,URINE NEGATIVE (NEGATIVE); NITRITE,URINE NEGATIVE (NEGATIVE); PROTEIN,URINE NEGATIVE (NEGATIVE); URINE SPECIFIC GRAVITY 1.025; UROBILINOGEN,URINE NEGATIVE mg/dL (<2.0)
[2020-02-12 11:13] LABS: ALBUMIN 4.2 g/dL (3.5-5.0); ALKALINE PHOSPHATASE 46 U/L (38-126); ANION GAP 10 (5-19); ASPARTATE AMINO TRANSFERASE 34 U/L (14-36); BILIRUBIN,DIRECT 0.2 mg/dL (0.0-0.4); BILIRUBIN,TOTAL 0.6 mg/dL (0.2-1.3); BLOOD UREA NITROGEN 17 mg/dL (7-20); CALCIUM 9.3 mg/dL (8.4-10.2); CARBON DIOXIDE 25 mmol/L (22-30); CHLORIDE 103 mmol/L (98-107); GLUCOSE 90 mg/dL (75-110); POTASSIUM 4.3 mmol/L (3.6-5.0); TOTAL PROTEIN 7.1 g/dL (6.3-8.2)
[~2020-02-15 08:51] MED LIST changes: +CEFAZOLIN 1 GM/D5W RTU 1 GM/50 ML RTUPB IV ONE; +CEFAZOLIN 1 GM/D5W RTU 1 GM/50 ML RTUPB IV PRN; +METOPROLOL TARTRATE PF/INJ 5 MG/5 ML SDV IV ONE; +NEOSTIGMINE METHYLSULFATE 10 MG/10 ML VIAL ONE; +NORMAL SALINE INJ/PF 0.9% 10 ML SDV ONE; +PHENYLEPHRINE HCL INJ/PF 10 MG/1 ML SDV ONE; +RINGERS SOLUTION,LACTATED 1,000 ML IV PRN; +SUCCINYLCHOLINE CHLORIDE INJ 200 MG/10 ML VIAL ONE; +VECURONIUM BROMIDE INJ 10 MG VIAL IV ONE
[2020-02-15] MEDS ORDERED: ONDANSETRON HCL INJ/PF 4 MG/2 ML SDV ONE (09:33)
[2020-02-15] MEDS ORDERED: KETOROLAC TROMETHAMINE 60 MG/2 ML SDV ONE (09:33)
[2020-02-15] MEDS ORDERED: FENTANYL CITRATE INJ/PF 100 MCG/2 ML AMPUL ONE (09:33)
[2020-02-15] MEDS ORDERED: MIDAZOLAM 2 MG/2 ML INJ ONE (09:33)
[2020-02-15] MEDS ORDERED: HYDROMORPHONE HCL INJ/PF 2 MG/ML AMPULE ONE (09:33)
[2020-02-15] MEDS ORDERED: PROPOFOL INJ 200 MG/20 ML VIAL IV ONE (09:34)
[2020-02-15] MEDS ORDERED: FLUCONAZOLE 100 MG TABLET PO SCH (10:00)
[2020-02-15] MEDS ORDERED: FENTANYL CITRATE INJ/PF 100 MCG/2 ML AMPUL IV PRN ×3 (10:57)
[2020-02-15] MEDS ORDERED: PROMETHAZINE HCL INJ 25 MG/1 ML VIAL IV PRN ×3 (10:57→12:12)
[2020-02-15] MEDS ORDERED: MORPHINE SULFATE 10 MG/ML INJ IV PRN ×2 (10:57→12:12)
[2020-02-15] MEDS ORDERED: OXYCODONE-ACETAMINOPHEN 5-325 MG TABLET PO PRN ×3 (10:57→12:12)
[2020-02-15] MEDS ORDERED: DIPHENHYDRAMINE HCL 50 MG/ML VIAL IV PRN (10:57)
[2020-02-15] MEDS ORDERED: MEPERIDINE HCL/PF INJ 25 MG/1 ML DISP.SYRIN IV PRN (10:57)
[2020-02-15] MEDS ORDERED: ONDANSETRON HCL INJ/PF 4 MG/2 ML SDV IV PRN (10:57)
[2020-02-15] MEDS ORDERED: ACETAMINOPHEN 325 MG TABLET PO PRN (12:12)
[2020-02-15] MEDS ORDERED: SIMETHICONE 80 MG TAB.CHEW PO PRN (12:12)
[2020-02-15] MEDS ORDERED: OXYTOCIN/0.9 % SODIUM CHLORIDE 30 UNIT/500 ML RTUINJ IV PRN (12:12)
[2020-02-15] MEDS ORDERED: ACETAMINOPHEN 1,000 MG/100 ML RTUPB IV PRN ×2 (12:12→13:09)
[2020-02-15] MEDS ORDERED: DIPH/PERTUSS(ACELL)/TETANUS VAC/PF 0.5 ML SYR (>=10YO) IM PRN (12:12)
[2020-02-15] MEDS ORDERED: MEASLES,MUMPS&RUBELLA VACC/PF 0.5 ML VIAL SUBCUT PRN (12:12)
[2020-02-15] MEDS: MORPHINE SULFATE 10 MG/ML INJ ONE ×2 (12:25→12:30)
--- NOTE | 2020-02-15 12:25 | Operative Report ---
Operative Report DATE OF SURGERY: 02/15/20 PREOPERATIVE DIAGNOSIS: Dysfunctional uterine bleeding, pelvic pain, POSTOPERATIVE DIAGNOSIS: same OPERATION: robotic Assisted total laparoscopic hysterectomy with bilateral salpingectomy SURGEON: BLANCA BURROWS ANESTHESIA: GA TISSUE REMOVED OR ALTERED: Uterus cervix bilateral fallopian tubes COMPLICATIONS: None ESTIMATED BLOOD LOSS: 150 cc INTRAOPERATIVE FINDINGS: 10-week size uterus boggy appearance consistent with adenomyosis fallopian tubes with Hulka clips on them for bilateral tubal ligation, normal-appearing premenopausal ovaries PROCEDURE: Patient was taken to the operating room prepared and draped in normal sterile fashion in dorsolithotomy position. Under sterile conditions a Sierra catheter was placed to gravity. Speculum was placed into the vagina and the cervix was grasped on the anterior lip with a single-tooth tenaculum. The cervix was then dilated to accommodate a medium V care uterine manipulator. Manipulate it was placed gloves were changed and attention was turned to the upper portion of the case. A 2-1/2 cm umbilical skin incision was made 11 blade and this was carried through to the underlying layer of fascia with the same 11 blade. It was grasped to Ariadne's acted with Zak's. New cavity was entered bluntly. A GelPort was placed in a normal fashion the camera port and air seal in the appropriate locations. Brizuela was then inflated with approximately 2 L of CO2 gas. The camera was then introduced into the peritoneal cavity through the camera port and the patient was placed in steep Trendelenburg. The above findings were noted. Under direct visualization two 5 mm ports were placed approximately 10 cm on either side of the umbilicus. The robot was then docked with the vessel sealer placed on the patient's left and the monopolar scissors placed placed on the patient's right. I then unscrubbed and set at the robotic console beginning with the left adnexa fallopian tube was transected from the uterus using the vessel sealer and monopolar scissors as needed. The fallopian tube was then removed through the assistance port. The ovarian ligament was then transected using the vessel sealer. The uterine artery was skeletonized using blunt dissection and ligated using the vessel sealer down to the level of the external cervical os. The bladder flap was then begun using monopolar scissors and blunt dissection over the V care cup noted through the mucosa. Attention was then turned to the right adnexa where the fallopian tube was transected in a similar fashion. The utero-ovarian ligament was transected using the vessel sealer. The Uterine artery was then transected using the vessel sealer and skeletonized using blunt dissection. The vessel sealer was again used to completely transect the uterine artery down to the level of the external cervical os. The bladder flap was completed using similar sharp and blunt dissection. Once the bladder was felt to be adequately away from the lower uterine segment, the colpotomy was begun on the anterior aspect of the cervix following the outline of the V care cup mucosa. The cup was followed in a circumferential fashion completely around the cervix estimate was completely freed. The specimen was then removed through the vaginal defect. The instruments were then changed to a Russ needle warehouse associate driver and pro-grasp. AV lock needle was introduced through the assistance port. The lock needle was used to close the vaginal cuff and hemostasis. The needle was then removed through the assistance port. The peritoneal cavity was carefully inspected the ureters were noted to both be peristalsing and there was no signs of hydroureter. The robot was then undocked. The fascia was closed at the umbilical skin incision seen 0 Vicryl 3 skin incisions were closed using 4-0 Vicryl. Sponge lap and needle counts were correct x2 and the patient was taken to recovery in stable condition.
[2020-02-15] MEDS ORDERED: METRONIDAZOLE 500 MG/NS RTU 500 MG/100 ML RTUPB IV SCH (12:30)
[2020-02-15] MEDS ORDERED: OXYCODONE-ACETAMINOPHEN 5-325 MG TABLET ONE (12:44)
[2020-02-15] MEDS ORDERED: ACETAMINOPHEN 1,000 MG/100 ML RTUPB IV ONE (13:03)
[2020-02-15] MEDS ORDERED: DEXAMETHASONE SOD PHOSPHATE INJ 4 MG/1 ML VIAL ONE (13:03)
[2020-02-15] MEDS ORDERED: PROMETHAZINE HCL INJ 25 MG/1 ML VIAL ONE (13:12)
[2020-02-15] MEDS: KETOROLAC TROMETHAMINE INJ/PF 30 MG/1 ML SDV IV SCH ×2 (14:33→22:13)
[2020-02-15] MEDS: METRONIDAZOLE 500 MG/NS RTU 500 MG/100 ML RTUPB IV SCH ×2 (14:52→22:14)
[2020-02-15] MEDS: RINGERS SOLUTION,LACTATED 1,000 ML IV PRN (14:57)
[2020-02-15] MEDS: OXYCODONE-ACETAMINOPHEN 5-325 MG TABLET PO PRN (16:59)
[2020-02-15] MEDS: DOCUSATE SODIUM 100 MG CAPSULE PO SCH (17:42)
[2020-02-15] MEDS ORDERED: VALACYCLOVIR HCL 500 MG TABLET PO ONE (18:30)
[2020-02-15] MEDS: IBUPROFEN 800 MG TABLET PO SCH (19:58)
[2020-02-16] MEDS: IBUPROFEN 800 MG TABLET PO SCH ×2 (00:17→05:29)
[2020-02-16] MEDS ORDERED: FLUCONAZOLE 100 MG TABLET PO ONE (03:45)
[2020-02-16] MEDS ORDERED: FLUCONAZOLE 100 MG TABLET ONE ×2 (03:45→03:49)
[2020-02-16] MEDS: METRONIDAZOLE 500 MG/NS RTU 500 MG/100 ML RTUPB IV SCH ×2 (03:52→09:10)
[2020-02-16] MEDS: RINGERS SOLUTION,LACTATED 1,000 ML IV PRN (04:01)
[2020-02-16] MEDS: OXYCODONE-ACETAMINOPHEN 5-325 MG TABLET PO PRN (04:20)
[2020-02-16] MEDS: KETOROLAC TROMETHAMINE INJ/PF 30 MG/1 ML SDV IV SCH (06:22)
[2020-02-16 07:45] LABS: HEMATOCRIT 33.6 % (36.0-47.0); HEMOGLOBIN 11.1 g/dL (12.0-15.5); MEAN CORPUSCULAR HGB CONC 32.9 g/dL (32.0-36.0); MEAN CORPUSCULAR VOLUME 85 fl (80-97); PLATELET COUNT 178 10^3/uL (150-450); RED BLOOD COUNT 3.95 10^6/uL (3.72-5.28); RED CELL DISTRIBUTION WIDTH 14.2 % (11.5-14.0); WHITE BLOOD COUNT 12.1 10^3/uL (4.0-10.5)
[2020-02-16] MEDS: DOCUSATE SODIUM 100 MG CAPSULE PO SCH (09:11)
--- NOTE | 2020-02-16 09:48 | PDOC DISCHARGE SUMMARY ---
Impression - Admit/DC Date/PCP Discharge Date: 02/16/20 - Discharge Diagnosis (1) Anemia Is this a current diagnosis for this admission?: Yes (2) Abnormal uterine bleeding Is this a current diagnosis for this admission?: Yes (3) Pelvic pain Is this a current diagnosis for this admission?: Yes - Assessment Summary: patient underwent a RATLH w/ b/l salpingectomy. unremarkable postoperative course. doing well and ready for discharge. Desires a prescription for Valtrex to prevent HSV outbreak and diflucan as she tends to get yeast infections with antibiotics. - Additional Information Resuscitation Status: Full Code Discharge Diet: As Tolerated Discharge Activity: Balance Activity w/Rest, No Driving, No Lifting Over 10 Pounds, No Lifting/Push/Pulling, Pelvic Rest, No tub bath, Walk Frequently Prescriptions: Oxycodone HCl/Acetaminophen [Percocet 5-325 mg Tablet] 1 tab PO Q4HP PRN #30 tablet PRN Reason: Docusate Sodium [Colace 100 mg Capsule] 100 mg PO BID #60 capsule Fluconazole [Diflucan 100 Mg Tablet] 150 mg PO DAILY #10 tablet Ibuprofen [Motrin 800 mg Tablet] 800 mg PO Q8H #60 tablet Valacyclovir HCl [Valtrex 500 Mg Tablet] 500 mg PO BID #60 tablet Home Medications: Albuterol Sulfate [Proair HFA Inhalation Aerosol 8.5 gm MDI] 2 puff PO DAILY PRN 09/16/15 Docusate Sodium [Colace 100 mg Capsule] 100 mg PO BID #60 capsule 02/16/20 Fluconazole [Diflucan 100 Mg Tablet] 150 mg PO DAILY #10 tablet 02/16/20 Ibuprofen [Motrin 800 mg Tablet] 800 mg PO Q8H #60 tablet 02/16/20 Oxycodone HCl/Acetaminophen [Percocet 5-325 mg Tablet] 1 tab PO Q4HP PRN #30 tablet 02/16/20 Valacyclovir HCl [Valtrex 500 Mg Tablet] 500 mg PO BID #60 tablet 02/16/20 History of Present Illiness History of Present Illness: JOSSE VARNER is a 29 year old female Physical Exam - Physical Exam Vital Signs: Temp Pulse Resp BP Pulse Ox 98.0 F 76 18 138/78 H 100 02/16/20 07:32 02/16/20 07:32 02/16/20 07:32 02/16/20 07:32 02/16/20 07:32 Intake & Output 02/15/20 02/16/20 02/17/20 06:59 06:59 06:59 Intake Total 3170 Output Total 1020 Balance 2150 Weight 94.2 kg Results Laboratory Results: WBC 12.1 10^3/uL (4.0-10.5) H 02/16/20 06:57 RBC 3.95 10^6/uL (3.72-5.28) 02/16/20 06:57 Hgb 11.1 g/dL (12.0-15.5) L 02/16/20 06:57 Hct 33.6 % (36.0-47.0) L 02/16/20 06:57 MCV 85 fl (80-97) 02/16/20 06:57 MCH 28.0 pg (27.0-33.4) 02/16/20 06:57 MCHC 32.9 g/dL (32.0-36.0) 02/16/20 06:57 RDW 14.2 % (11.5-14.0) H 02/16/20 06:57 Plt Count 178 10^3/uL (150-450) 02/16/20 06:57 Sodium 137.7 mmol/L (137-145) 02/12/20 09:16 Potassium 4.3 mmol/L (3.6-5.0) 02/12/20 09:16 Chloride 103 mmol/L (98-107) 02/12/20 09:16 Carbon Dioxide 25 mmol/L (22-30) 02/12/20 09:16 Anion Gap 10 (5-19) 02/12/20 09:16 BUN 17 mg/dL (7-20) 02/12/20 09:16 Creatinine 0.97 mg/dL (0.52-1.25) 02/12/20 09:16 Est GFR ( Amer) > 60 (>60) 02/12/20 09:16 Est GFR (MDRD) Non-Af > 60 (>60) 02/12/20 09:16 Glucose 90 mg/dL (75-110) 02/12/20 09:16 Calcium 9.3 mg/dL (8.4-10.2) 02/12/20 09:16 Total Bilirubin 0.6 mg/dL (0.2-1.3) 02/12/20 09:16 Direct Bilirubin 0.2 mg/dL (0.0-0.4) 02/12/20 09:16 Neonat Total Bilirubin Not Reportable 02/12/20 09:16 Neonat Direct Bilirubin Not Reportable 02/12/20 09:16 Neonat Indirect Bili Not Reportable 02/12/20 09:16 AST 34 U/L (14-36) 02/12/20 09:16 ALT 24 U/L (<35) 02/12/20 09:16 Alkaline Phosphatase 46 U/L (38-126) 02/12/20 09:16 Total Protein 7.1 g/dL (6.3-8.2) 02/12/20 09:16 Albumin 4.2 g/dL (3.5-5.0) 02/12/20 09:16 Urine Color YELLOW 02/12/20 09:20 Urine Appearance SLIGHTLY-CLOUDY 02/12/20 09:20 Urine pH 6.0 (5.0-9.0) 02/12/20 09:20 Ur Specific Banner 1.025 02/12/20 09:20 Urine Protein NEGATIVE mg/dL (NEGATIVE) 02/12/20 09:20 Urine Glucose (UA) NEGATIVE mg/dL (NEGATIVE) 02/12/20 09:20 Urine Ketones NEGATIVE mg/dL (NEGATIVE) 02/12/20 09:20 Urine Blood NEGATIVE (NEGATIVE) 02/12/20 09:20 Urine Nitrite NEGATIVE (NEGATIVE) 02/12/20 09:20 Urine Bilirubin NEGATIVE (NEGATIVE) 02/12/20 09:20 Urine Urobilinogen NEGATIVE mg/dL (<2.0) 02/12/20 09:20 Ur Leukocyte Esterase NEGATIVE (NEGATIVE) 02/12/20 09:20 Urine WBC (Auto) 1 /HPF 02/12/20 09:20 Urine RBC (Auto) 0 /HPF 02/12/20 09:20 Squamous Epi Cells Auto 4 /HPF 02/12/20 09:20 Urine Mucus (Auto) RARE /LPF 02/12/20 09:20 Urine Ascorbic Acid NEGATIVE (NEGATIVE) 02/12/20 09:20 Urine HCG, Qual NEGATIVE (NEGATIVE) 02/15/20 09:07 COVID-19 Source NASOPHARYNGEAL 02/12/20 09:10 COVID-19 (RYDER) NOT DETECTED 02/12/20 09:10 Blood Type A POSITIVE 02/14/20 15:04 Antibody Screen NEGATIVE 02/14/20 15:04 Stroke Is this a Stroke Patient?: No Acute Heart Failure - Is this a Heart Failure Patient?: No
[2020-02-16] MEDS ORDERED: PRENATAL VITAMIN W DHA CAPSULE PO SCH (10:00)
[2020-02-16 11:39] VITALS: BP 133/75
== END 2020-02-16 12:55 | disposition home or self-care (01) ==
LOC: OROUT 08:51 → 2N 14:19 → OROUT 02-16 12:55
PROVIDERS: ATTEND Obstetrics & Gynecology
DX: N93.8 Other specified abnormal uterine and vaginal bleeding (principal); N72 Inflammatory disease of cervix uteri; N83.8 Other noninflammatory disorders of ovary, fallopian tube and broad ligament; R10.2 Pelvic and perineal pain; R13.10 Dysphagia, unspecified; K14.9 Disease of tongue, unspecified; Z88.2 Allergy status to sulfonamides; D64.9 Anemia, unspecified; Z03.818 Encounter for observation for suspected exposure to other biological agents ruled out; N92.6 Irregular menstruation, unspecified; J45.909 Unspecified asthma, uncomplicated
CPT/HCPCS: 58571; S2900; 36415; 80053; 81001; 81025; 840; 85027; 86850; 86900; 86901; 87635; 88307; 94799; A4649; C1758; C9803; J0131; J0330; J0690; J1100; J1170; J1885; J2250; J2270; J2370; J2405; J2550; J2704; J2710; J3010; J3490; J7120